=== PATIENT | male | born 1960 | race Caucasian/White ===

== ENCOUNTER 2020-12-22 01:45 | Inpatient (IN) | payer OTHER, SELFPAY ==
--- OUTSIDE RECORDS SUMMARY | 2020-12-22 01:48 | XMS REPORT | Continuity of Care Document ---
:1960 Author Organization [facility] t Address [address] [place] [address] Care Team Providers Name Role Phone Nisha Singh Attending Clinician KAI Attending Clinician Unavailable KAI Admitting Clinician Unavailable Payers Payer Name Policy Type Policy Number Effective Date Expiration Date S ource Problems This patient has no known problems. Allergies, Adverse Reactions, Alerts Allergy Allergy Status Severity Reaction(s) Onset Inactive Treating Comm ents Source Name Type Date Date Clinician peanut FA Active U 2020-0 [facility] [place] 00:00: [address] iodine DA Active U 2020-0 [facility] [place] 00:00: [address] Medications This patient has no known medications. Procedures This patient has no known procedures. Encounters Start End Encounter Admission Attending Care Care Encounter Source Date/Time Date/Time Type Type Clinicians Facility Department ID 2020-01-13 2020-01-13 [facility] Connie Singh [id number] 09:36:00 23:59:00 Encounter Tk Cameron [facility] [id number] Results Test Description Test Time Test Comments Results Result Comments Source GLUCOSE BEDSIDE TESTING 2020-01-27 20:48:00 Test Item Value Reference Range Interpretation Comme nts GLUCOSE BEDSIDE TESTING (test code = GLUBED) 178 MG/DL 70-119 H GLUCOSE BEDSIDE [id number] 17:18:00 Test Item Value Reference Range Interpretation Comments GLUCOSE BEDSIDE TESTING (test code 147 MG/DL 70-119 H = GLUBED) GLUCOSE BEDSIDE [id number] 12:13:00 Test Item Value Reference Range Interpretation Comments GLUCOSE BEDSIDE TESTING (test code 179 MG/DL 70-119 H = GLUBED) BASIC METABOLIC [id number] 11:50:00 Test Item Value Reference Range Interpretation Comments SODIUM (test code = 133.0 mmol/L 133-144 N NA) POTASSIUM (test code 3.1 mmol/L 3.5-5.1 L = K) CHLORIDE (test code 97 mmol/L 95-105 N = CL) CARBON DIOXIDE (test 31 mmol/L 21-32 N code = CO2) ANION GAP (test code 5.0 GAP calc 4.0-15.0 N = GAP) GLUCOSE (test code = 164 MG/DL 70-110 H GLU) BLOOD UREA NITROGEN 18 MG/DL 7-18 N (test code = BUN) CREATININE (test 2.11 MG/DL 0.55-1.30 H Results may be code = CREAT) depressed if patient is takingN-Acetylc yste ine (NAC) and Metamizole (Dipyrone). CALCIUM (test code = 8.5 MG/DL 8.5-10.1 N CA) INDEX HEMOLYSIS 1 NORMAL <10 MG 1 NORMAL (test code = Index/DL HEMINDEX) INDEX ICTERIC (test 1 NORMAL <2 MG 1 NORMAL code = ICTINDEX) Index/DL INDEX LIPEMIA (test 1 NORMAL <50 MG 1 NORMAL code = LIPINDEX) Index/DL AB HEPATITIS B [id number] 10:31:00 Test Item Value Reference Range Interpretation Comments AB HEPATITIS B > 1000.00 0.00-8.00 H INTERPRET WIT H SURFACE (test code mIU/ML CAUTION, THIS VALUE = HBSAB) EXCEEDS THE UPP ER LIMITOF LINEARI TY VERIFICATION ESTABLISHED BY THE LABORATORY.HBSA B IMMUNITY INTERPRETATION <8.00 mIU/ML NON-Reactive 8.00-12.00 mIU/ ML [place] Immunity Interpretation Range>12.00 mIU/ML Reactive /Immune Values of 10 mIU/ML or greater are considered reac tive (protective) in accordance with the (CDC) Centers f or Disease Control guidelines. The accepted criter ion for immunity to HB V is anti-HBS activi ty >=10 mIU/ML as defi oli by (WHO) World Hea lth Organization. AG HEPATITIS B [id number] 10:31:00 Test Item Value Reference Range Interpretation Comments AG HEPATITIS B SURFACE NEG-NONREAC SCREEN Nonreactive (test code = HBSAG) GLUCOSE BEDSIDE [id number] 05:58:00 Test Item Value Reference Range Interpretation Comments GLUCOSE BEDSIDE TESTING (test code 145 MG/DL 70-119 H = GLUBED) GLUCOSE BEDSIDE [id number] 21:07:00 Test Item Value Reference Range Interpretation Comments GLUCOSE BEDSIDE TESTING (test code 166 MG/DL 70-119 H = GLUBED) GLUCOSE BEDSIDE [id number] 16:08:00 Test Item Value Reference Range Interpretation Comments GLUCOSE BEDSIDE TESTING (test code 152 MG/DL 70-119 H = GLUBED) GLUCOSE BEDSIDE [id number] 11:47:00 Test Item Value Reference Range Interpretation Comments GLUCOSE BEDSIDE TESTING (test code 148 MG/DL 70-119 H = GLUBED) PROTHROMBIN [id number] 06:58:00 Test Item Value Reference Range Interpretation Comments PT PATIENT (test code 16.9 SECONDS 9.4-12.5 H = PTP) INTERNATIONAL NORMAL 1.46 INR Unit 0.88-1.13 H ------ RATIO (test code = --------- INR) ---- --Therapeutic r cholo for INR is dependent upon the situation.2.0-3 .0 Prophylaxis / venous thromboembolism , Treatment of DVT, Acute myocardial infarction stro ke prevention, Systemic emboli sm prevention in fibrillation3.0 -4.5 AMI recurrence prevention, Systemic emboli sm prevention in prosthetic hear t 3.0-5.4 AMI mortality reduc tion ANTICOAGULANT THERAPY [Y,N]: YESANTICOAGULANT [H,C]: COUMADINGLUCOSE BEDSIDE [id number] 06:40:00 Test Item Value Reference Range Interpretation Comments GLUCOSE BEDSIDE TESTING (test code 158 MG/DL 70-119 H = GLUBED) GLUCOSE BEDSIDE [id number] 20:45:00 Test Item Value Reference Range Interpretation Comments GLUCOSE BEDSIDE TESTING (test code 137 MG/DL 70-119 H = GLUBED) GLUCOSE BEDSIDE [id number] 16:44:00 Test Item Value Reference Range Interpretation Comments GLUCOSE BEDSIDE TESTING (test code 131 MG/DL 70-119 H = GLUBED) PROTHROMBIN [id number] 15:12:00 Test Item Value Reference Range Interpretation Comments PT PATIENT (test code 15.7 SECONDS 9.4-12.5 H = PTP) INTERNATIONAL NORMAL 1.36 INR Unit 0.88-1.13 H ------ RATIO (test code = --------- INR) ---- --Therapeutic r cholo for INR is dependent upon the situation.2.0-3 .0 Prophylaxis / venous thromboembolism , Treatment of DVT, Acute myocardial infarction stro ke prevention, Systemic emboli sm prevention in fibrillation3.0 -4.5 AMI recurrence prevention, Systemic emboli sm prevention in prosthetic hear t 3.0-5.4 AMI mortality reduc tion BASIC METABOLIC [id number] 15:09:00 Test Item Value Reference Range Interpretation Comments SODIUM (test code = NA) 132.0 mmol/L 133-144 L POTASSIUM (test code = K) 3.5 mmol/L 3.5-5.1 N CHLORIDE (test code = CL) 96 mmol/L 95-105 N CARBON DIOXIDE (test code 32 mmol/L 21-32 N = CO2) ANION GAP (test code = 4.0 GAP calc 4.0-15.0 N GAP) GLUCOSE (test code = GLU) 141 MG/DL 70-110 H BLOOD UREA NITROGEN (test 14 MG/DL 7-18 N code = BUN) CREATININE (test code = MG/DL 0.55-1.30 CREAT) CALCIUM (test code = CA) 8.8 MG/DL 8.5-10.1 N INDEX HEMOLYSIS (test 1 NORMAL <10 MG 1 NORMAL code = HEMINDEX) Index/DL INDEX ICTERIC (test code 1 NORMAL <2 MG 1 NORMAL = ICTINDEX) Index/DL INDEX LIPEMIA (test code 1 NORMAL <50 MG 1 NORMAL = LIPINDEX) Index/DL BASIC METABOLIC [id number] 15:09:00 Test Item Value Reference Range Interpretation Comments SODIUM (test code = 132.0 mmol/L 133-144 L NA) POTASSIUM (test code 3.5 mmol/L 3.5-5.1 N = K) CHLORIDE (test code 96 mmol/L 95-105 N = CL) CARBON DIOXIDE (test 32 mmol/L 21-32 N code = CO2) ANION GAP (test code 4.0 GAP calc 4.0-15.0 N = GAP) GLUCOSE (test code = 141 MG/DL 70-110 H GLU) BLOOD UREA NITROGEN 14 MG/DL 7-18 N (test code = BUN) CREATININE (test 2.63 MG/DL 0.55-1.30 H Results may be code = CREAT) depressed if patient is takingN-Acetylc yste ine (NAC) and Metamizole (Dipyrone). CALCIUM (test code = 8.8 MG/DL 8.5-10.1 N CA) INDEX HEMOLYSIS 1 NORMAL <10 MG 1 NORMAL (test code = Index/DL HEMINDEX) INDEX ICTERIC (test 1 NORMAL <2 MG 1 NORMAL code = ICTINDEX) Index/DL INDEX LIPEMIA (test 1 NORMAL <50 MG 1 NORMAL code = LIPINDEX) Index/DL GLUCOSE BEDSIDE [id number] 12:15:00 Test Item Value Reference Range Interpretation Comments GLUCOSE BEDSIDE TESTING (test code 138 MG/DL 70-119 H = GLUBED) PT AND [id number] 10:30:00 Test Item Value Reference Interpretation Comments Range PT PATIENT (test 15.8 SECONDS 9.4-12.5 H code = PTP) INTERNATIONAL 1.37 INR 0.88-1.13 H NORMAL RATIO (test Unit --------- code = INR) ---------Therap eutic range for INR i s dependent upon the situation.2.0-3 .0 Prophylaxis / v enous thromboembolism , Treatment of DVT, Acute myocardia l infarction stro ke prevention, Systemic emboli sm prevention in fibrillation3.0 -4.5 AMI recurrence prev ention, Systemic emboli sm prevention in p rosthetic heart 3.0-5.4 A [place] mortality reduc tion THROMBOPLASTIN TIME 102.2 24-37.7 HH Critica l values after PARTIAL (test code SECONDS the first occurrence are = PTT) excluded fromca ll documentation requirements fo r this analyte due to thepatient diagnosis or th erapy protocols.THERA PEUTIC RANGE FOR UNFRA CTIONATED HEPARIN = 50.5- 83.6 SEC This test is no t recommended to monitor low molecularwe ight heparin or sienna paroid. Order LMWH test COLLECTION THRO UGH LINES THAT HAVE BEEN PREVIOUSLY FLUSHEDWITH HEP GIL SHOULD BE AVOID ED DUE TO POSSIBLE HEPARINCONTAMIN ATION PENDING RECEIPT OF SPECIMEN PER B.LAB.KTP AT 01/25/20 0942Is this a LINE draw? NANTICOAGULANT THERAPY [Y,N]: YESANTICOAGULANT [H,C]: HEPARINLIPID PROFILE (CORONARY RISK)2020-01-25 07:20:00 Test Item Value Reference Range Interpretation Comments TRIGLYCERIDES (test 444 MG/DL 0-150 H HIGH RIS K TRIGLYCERIDE code = TRIG) 200-499 MG/DLRe ference intervals provi ded by The National CholesterolEduc ation Program Adult T reatment Panel III (NCEP -ATP III).Results ma y be depressed if yimi castle is takingN-Acetylc ysteine (NAC) and Metam izole (Dipyrone). CHOLESTEROL (test 159 MG/DL 133-200 N code = CHOL) CHOLESTEROL/HDL 4.96 RATIO >0 REFERENCE R CHOLO: RATIO (test code = MALE FEMALE CHOLHDL) 1/2 AVG RISK 3.43 3.27 AVG RISK 4.9 7 4.44 2X AV G RISK 9.55 7.05 3X AVG RISK 23.39 11.04 HDL CHOLESTEROL 32 MG/DL 40-59 L Results mayb e depressed (test code = HDL) if patient is taking Metamizole(Dipy echo). NON-HDL CHOLESTEROL 127 mg/dL <130 Patients with CHD or CHD (test code = NHDL) risk LD L: <70 mg/dL nonHDL: <100 mg/dLPatients w ith 2+ risk factors LDL: <130 mg/dL no nHDL: <160 mg/dLPatie nts with 0-1 risk factor s LDL: <160 mg/dL nonHDL: <190 mg/dL LIPOPROTEIN LDL 38 MG/DL 0-129 N (test code = LDL) LDL/HDL (test code 1.18 Ratio 1.48-3.22 Avg L LDL/HDL RISK = LDL/HDL) ASSESSMENT1.47 One-half averag e3.22 Average5.03 Two times average6. [address] rage COMPREHENSIVE METABOLIC [id number] 07:09:00 Test Item Value Reference Range Interpretation Comments SODIUM (test code = 134.0 mmol/L 133-144 N NA) POTASSIUM (test code 3.7 mmol/L 3.5-5.1 N = K) CHLORIDE (test code 98 mmol/L 95-105 N = CL) CARBON DIOXIDE (test 32 mmol/L 21-32 N code = CO2) ANION GAP (test code 4.0 GAP calc 4.0-15.0 N = GAP) GLUCOSE (test code = 119 MG/DL 70-110 H GLU) BLOOD UREA NITROGEN 11 MG/DL 7-18 N (test code = BUN) GLOMERULAR 26 estGFR >60 L The estimated FILTRATION RATE glomerular (test code = GFR) filtration rate is computed usingpatient ra ce, age, sex, and s tomasz creatinine. If any of theneeded da ta elements are mi ssing the Laboratory can notcompute an estimation of t he glomerular filtration rate .The GFR value units = ml/min/1.73 met er squared. EstimatedGFR va lues above 60 should be interpreted as >60, not anexact number.--- DRUG DOSAGE ALERT -- - Drug dosage adjustments uti lize different calculationpara meter s. CREATININE (test 2.51 MG/DL 0.55-1.30 H Results may be code = CREAT) depressed if p atient is takingN-Acetylc ystei ne (NAC) and Metamizole (Dipyrone). TOTAL PROTEIN (test 8.6 G/DL 6.4-8.2 H code = PROT) ALBUMIN (test code = 4.0 G/DL 3.4-5.0 N ALB) ALBUMIN/GLOBULIN 0.9 RATIO 1.2-2.2 L RATIO (test code = A/G) CALCIUM (test code = 8.7 MG/DL 8.5-10.1 N CA) BILIRUBIN TOTAL 0.97 MG/DL 0.00-1.00 N (test code = BILT) BILIRUBIN DIRECT 0.34 MG/DL 0.00-0.30 H (test code = BILD) BILIRUBIN INDIRECT 0.63 MG/DL 0.2-1.3 N (test code = BILIND) SGOT/AST (test code 35 Unit/L 15-37 N = AST) SGPT/ALT (test code 23 Unit/L 12-78 N = ALT) ALKALINE PHOSPHATASE 173 Unit/L 45-117 H TOTAL (test code = ALKP) INDEX HEMOLYSIS 1 NORMAL <10 1 NORMAL (test code = MG Index/DL HEMINDEX) INDEX ICTERIC (test 1 NORMAL <2 MG 1 NORMAL code = ICTINDEX) Index/DL INDEX LIPEMIA (test 1 NORMAL <50 1 NORMAL code = LIPINDEX) MG Index/DL [id number] 07:09:00 Test Item Value Reference Range Interpretation Comments TROPONIN-I 0.175 NG/ML 0.000-0.045 HH Critical values after the (test code = first occurrenc e are excluded TROPI) fromcall docume ntation requirements fo r this analyte due to thepatie nt diagnosis or therapy prot ocols.An elevated tropon in value alone is not sufficie nt todiagnose a myocardial in farction. Rather, the pat ient'sclinical presentation (h istory, physical exam) and ECGshould be used in conj unction with troponin in the diagnostic evaluation of s uspected myocardial infa rction. Aserial samplin g protocol is recommended to facilitate theidentificati on of temporal changes in trop onin levelscharacter istic of [place]. COMPREHENSIVE METABOLIC [id number] 06:51:00 Test Item Value Reference Range Interpretation Comments SODIUM (test code = NA) 134.0 mmol/L 133-144 N POTASSIUM (test code = K) 3.7 mmol/L 3.5-5.1 N CHLORIDE (test code = CL) 98 mmol/L 95-105 N CARBON DIOXIDE (test code mmol/L 21-32 = CO2) ANION GAP (test code = GAP calc 4.0-15.0 GAP) GLUCOSE (test code = GLU) MG/DL 70-110 BLOOD UREA NITROGEN (test MG/DL 7-18 code = BUN) CREATININE (test code = MG/DL 0.55-1.30 CREAT) TOTAL PROTEIN (test code G/DL 6.4-8.2 = PROT) ALBUMIN (test code = ALB) G/DL 3.4-5.0 ALBUMIN/GLOBULIN RATIO RATIO 1.2-2.2 (test code = A/G) CALCIUM (test code = CA) MG/DL 8.5-10.1 BILIRUBIN TOTAL (test MG/DL 0.00-1.00 code = BILT) BILIRUBIN DIRECT (test MG/DL 0.00-0.30 code = BILD) BILIRUBIN INDIRECT (test MG/DL 0.2-1.3 code = BILIND) SGOT/AST (test code = Unit/L 15-37 AST) SGPT/ALT (test code = Unit/L 12-78 ALT) ALKALINE PHOSPHATASE Unit/L 45-117 TOTAL (test code = ALKP) INDEX HEMOLYSIS (test 1 NORMAL <10 MG 1 NORMAL code = HEMINDEX) Index/DL INDEX ICTERIC (test code 1 NORMAL <2 MG 1 NORMAL = ICTINDEX) Index/DL INDEX LIPEMIA (test code 1 NORMAL <50 MG 1 NORMAL = LIPINDEX) Index/DL [id number] 06:51:00 Test Item Value Reference Range Interpretation Comments TROPONIN-I (test code = TROPI) NG/ML 0.000-0.045 GLYCOSYLATED HEMOGLOBIN (HA1C)2020-01-25 06:50:00 Test Item Value Reference Range Interpretation Comments GLYCOSYLATED HEMOGLOBIN (HA1C) 5.5 % A1C 4.2-6.3 N (test code = GLYHGB) CBC W/AUTO [id number] 05:54:00 Test Item Value Reference Range Interpretation Comments WHITE BLOOD CELL (test code = 5.4 K/mm3 4.1-12.1 N WBC) RED BLOOD CELL (test code = RBC) 4.03 M/mm3 3.8-5.5 N HEMOGLOBIN (test code = HGB) 12.1 G/DL 10.6-15.8 N HEMATOCRIT (test code = HCT) 37.1 % 31.8-47.4 N MEAN CELL VOLUME (test code = 92.1 fL 80.1-101.1 N MCV) MEAN CELL HGB (test code = MCH) 30.0 pg 25.3-35.3 N MEAN CELL HGB CONCETRATION (test 32.6 G/DL 32.7-35.1 L code = MCHC) RED CELL DISTRIBUTION WIDTH 16.4 % 12.2-16.4 N (test code = RDW) RED CELL DISTRIBUTION WIDTH 54.7 fL 35.1-43.9 H (test code = RDW-SD) PLATELET COUNT (test code = PLT) 139 K/mm3 155-337 L MEAN PLATELET VOLUME (test code 10.4 fL 7.6-10.4 N = MPV) GRANULOCYTE % (test code = GR%) 69.1 % 37.8-82.6 N IMMATURE GRANULOCYTE % (test 0.4 % 0.0-2.0 N code = IG%) LYMPHOCYTE % (test code = LY%) 18.5 % 14.1-45.4 N MONOCYTE % (test code = MO%) 9.3 % 2.5-11.7 N EOSINOPHIL % (test code = EO%) 2.1 % 0.0-6.2 N BASOPHIL % (test code = BA%) 0.6 % 0.0-2.6 N NUCLEATED RBC % (test code = 0.0 /100WBC% 0.0-1.0 N NRBC%) GRANULOCYTE # (test code = GR#) 3.71 k/mm3 2.0-13.7 N IMMATURE GRANULOCYTE # (test 0.02 K/mm3 0.00-0.03 N code = IG#) LYMPHOCYTE # (test code = LY#) 0.99 K/mm3 0.6-3.8 N MONOCYTE # (test code = MO#) 0.50 K/mm3 0.11-0.59 N EOSINOPHIL # (test code = EO#) 0.11 K/mm3 0.0-0.4 N BASOPHIL # (test code = BA#) 0.03 K/mm3 0.0-0.1 N NUCLEATED RBC # (test code = 0.00 K/mm3 0.00-0.05 N NRBC#) GLUCOSE BEDSIDE [id number] 05:24:00 Test Item Value Reference Range Interpretation Comments GLUCOSE BEDSIDE TESTING (test code 120 MG/DL 70-119 H = GLUBED) PT AND [id number] 23:09:00 Test Item Value Reference Interpretation Comments Range PT PATIENT (test 15.9 SECONDS 9.4-12.5 H code = PTP) INTERNATIONAL 1.38 INR 0.88-1.13 H NORMAL RATIO (test Unit --------- code = INR) ---------Therap eutic range for INR i s dependent upon the situation.2.0-3 .0 Prophylaxis / v enous thromboembolism , Treatment of DVT, Acute myocardia l infarction stro ke prevention, Systemic emboli sm prevention in fibrillation3.0 -4.5 AMI recurrence prev ention, Systemic emboli sm prevention in p rosthetic heart 3.0-5.4 A [place] mortality reduc tion THROMBOPLASTIN TIME 72.8 SECONDS 24-37.7 H THERAPEU TIC RANGE FOR PARTIAL (test code UNFRACTIO NATED HEPARIN = = PTT) 50.5-83.6 SEC T his test is not recommen ded to monitor low molecularweight heparin or danaparoid. Order LMWH test COLLECTION THROUGH LINES THAT HAVE BEEN PREVIOUSLY FLUS HEDWITH HEPARIN SHOULD BE AVOIDED DUE TO POSSIBLE HEPARINCONTAMIN ATION Coronavirus 2018 [facility]Co [id number] 22:41:00 Test Item Value Reference Range Interpretation Comments Coronavirus 2019 [facility] Bedside (test Negative Neg code = COVNONPUIBED) - XR CHEST 1 [id number] 21:00:00 FAX: Federico Phillip MD [phone] [place]: E St: REG Patient Name: MARIANA ANTONY Unit No: [id number] EXAMS: CPT CODE: [id number] XR CHEST 1 V [id number] EXAM: - XR CHEST 1 V LOCATION: C3 HISTORY: Chest pain COMPARISON: None available time of inte rpretation. FINDINGS: Single view of the chest. The left IJ CVC tip overlies the right atrial shadow. No pneumothorax. Lung volumesare low. Mild bibasilar infiltrates. The mediastinal contours are unremarkable/unchanged.No acute osseous findings are present. IMPRESSION: Mild bibasilar edema versus pneumonitis. at 2100 Reported and signed by: Isael Mcclendon MD CC: Federico Phillip MD Dictated Date/Time: 01/24/2020 (2099)Technologist: Diana Tijerina Transcribed Date/Time: 01/24/2020 (2099) By: [email or web address] Orig Print D/T: S: 01/24/2020 (2102) HAILEY Baumann NAME: MARIANA ANTONY [address] PHYS: HOWIE. Federico Phillip [place], [place] [address] : 1960 AGE: 59 SEX: M LOC: [facility] PHONE #: [phone] EXAM DATE: 01/24/2020 STATUS: REG ER FAX #: [phone] RAD NO: DC Dt: PAGE 1 Signed ReportBASIC METABOLIC [id number] 20:54:00 Test Item Value Reference Range Interpretation Comments SODIUM (test code = 133.0 mmol/L 133-144 N NA) POTASSIUM (test code 3.4 mmol/L 3.5-5.1 L = K) CHLORIDE (test code 97 mmol/L 95-105 N = CL) CARBON DIOXIDE (test 30 mmol/L 21-32 N code = CO2) ANION GAP (test code 6.0 GAP calc 4.0-15.0 N = GAP) GLUCOSE (test code = 125 MG/DL 70-110 H GLU) BLOOD UREA NITROGEN 9 MG/DL 7-18 N (test code = BUN) CREATININE (test 2.03 MG/DL 0.55-1.30 H Results may be code = CREAT) depressed if patient is takingN-Acetylc yste ine (NAC) and Metamizole (Dipyrone). CALCIUM (test code = 8.9 MG/DL 8.5-10.1 N CA) INDEX HEMOLYSIS 1 NORMAL <10 MG 1 NORMAL (test code = Index/DL HEMINDEX) INDEX ICTERIC (test 1 NORMAL <2 MG 1 NORMAL code = ICTINDEX) Index/DL INDEX LIPEMIA (test 1 NORMAL <50 MG 1 NORMAL code = LIPINDEX) Index/DL TROPONIN I [id number] 20:47:00 Test Item Value Reference Range Interpretation Comments TROPONIN I RAPID 0.13 NG/ML 0.00-0.07 HH LOW/HIGH AL ERT VALUE - (test code = ACTION REQUIRED An elevated TROPIRAP) troponin value alone is not sufficient todi agnose a myocardial infa rction. Rather, the patient'sclinic al presentation (h istory, physical exam) and ECGshould be us ed in conjunction wit h troponin in thediagnosti c evaluation of suspected my ocardial infarction. Ase rial sampling protoc ol is recommended to facilitate theidentificati on of temporal change s in troponin levelscharacter istic of [place]. CBC W/O [id number] 20:44:00 Test Item Value Reference Range Interpretation Comments WHITE BLOOD CELL (test code = WBC) 7.8 K/mm3 4.1-12.1 N RED BLOOD CELL (test code = RBC) 3.93 M/mm3 3.8-5.5 N HEMOGLOBIN (test code = HGB) 12.1 G/DL 10.6-15.8 N HEMATOCRIT (test code = HCT) 35.7 % 31.8-47.4 N MEAN CELL VOLUME (test code = MCV) 90.8 fL 80.1-101.1 N MEAN CELL HGB (test code = MCH) 30.8 pg 25.3-35.3 N MEAN CELL HGB CONCETRATION (test 33.9 G/DL 32.7-35.1 N code = MCHC) RED CELL DISTRIBUTION WIDTH (test 15.8 % 12.2-16.4 N code = RDW) PLATELET COUNT (test code = PLT) 145 K/mm3 155-337 L MEAN PLATELET VOLUME (test code = 10.6 fL 7.6-10.4 H MPV) Comprehensive Metabolic [id number] 00:41:00 Test Item Value Reference Range Interpretation Comments Sodium (test code 132 mmol/L 135-145 L = NA) Potassium (test see comment 3.5-5.1 Hemolyzed K+ 8.08 code = K) mmol/L Chloride (test 98 mmol/L 98-105 N code = CL) Carbon Dioxide 21 mmol/L 22-29 L (test code = CO2) Glucose (test code 174 mg/dL 70-115 H = GLU) Blood Urea 16 mg/dL 6-20 N Nitrogen (test code = BUN) Creatinine (test 1.1 mg/dL 0.7-1.2 N code = CREAT) Calcium (test code 8.8 mg/dL 8.3-10.5 N = CA) Prot Total (test 8.0 g/dL 6.4-8.3 N code = TP) Albumin (test code 4.1 g/dL 3.5-5.2 N = ALB) A/G Ratio (test 1.1 Ratio code = AGRATIO) Globulin (test 3.9 2.9-3.1 H code = GLOB) Bili Total (test 0.5 mg/dL 0.1-0.9 N code = TBIL) Alk Phos (test 112 U/L 40-129 N code = APHOS) AST (test code = 74 U/L 1-40 H AST) ALT (test code = 9 U/L 1-41 N Hemolyzed ALT) BUN/Creatinine 14.5 Ratio (test code = BCRATIO) Anion Gap (test 13 mmol/L 7-16 N code = AGAP) Estimated GFR >60 eGFR (estimate d (test code = GFR) mL/min/1.73m2 Glomerula r Filtration Rate) is an est imated value,calculate d from the patient's s tomasz creatinine usin g the MDRD equation.I t is NOT the patient 's actual GFR. The eGFR provides a more clinicallyusefu l measure of kidn ey disease than se rum creatinine alone.This calculation nilesh es sex and race into account, if the informationis provided. If th e race is not provided , and the patient isAfrican-Ameri can, multiply by 1.2 12. If sex is not prov ided, and thepatient is female, multipl y by 0.742. Results for patients <18 ye ars ofage have not been validated by th e MDRD study and jayden colbert be interpretedwith caution.eGFR Re sult Interpretation: eGFR > or = 60 is in t he Normal RangeeGF R < 60 may mean kidney diseaseeGFR < 1 5 may mean kidney failureRange s recommended by the National Kidney Foundation,http ://nkd ep.nih.gov Troponin [id number] 00:41:00 Test Item Value Reference Range Interpretation Comments Troponin T (test code = CAMILLE) <0.010 ng/mL 0.000-0.090 N CK [id number] 00:41:00 Test Item Value Reference Range Interpretation Comments CK (test code = CK) 146 U/L 39-308 N CK [id number] 00:41:00 Test Item Value Reference Range Interpretation Comments CK (test code = CK) 146 U/L 39-308 N CKMB (test code = CKMB) 1.8 ng/mL 0.0-4.9 N CKMB% (test code = CKMBP) 1.2 % 0.0-3.4 N Prothrombin [id number] 00:15:00 Test Item Value Reference Range Interpretation Comments PT (test code = PT) 11.60 seconds 9.78-13.35 N INR (test code = INR) 1.02 Ratio 0.6-1.2 N Partial Thromboplastin [id number] 00:15:00 Test Item Value Reference Range Interpretation Comments aPTT (test code = PTT) 38.00 seconds 24.39-37.25 H CBC with [id number] 00:01:00 Test Item Value Reference Range Interpretation Comments WBC (test code = WBC) 6.4 K/cumm 4.4-10.5 N RBC (test code = RBC) 6.04 M/cumm 4.10-5.70 H Hemoglobin (test code = HGB) 16.3 gm/dL 13.4-17.4 N Hematocrit (test code = HCT) 49.4 % 38.7-52.0 N MCV (test code = MCV) 81.7 fL 80-100 N MCH (test code = MCH) 26.9 pg 27.0-32.5 L MCHC (test code = MCHC) 32.9 g/dL 32.0-37.5 N RDW (test code = RDW) 16.5 % 11.5-14.5 H Platelet Count (test code = 138 K/cumm 140-440 L PLTCT) MPV (test code = MPV) 9.5 fL Diff Method (test code = DIFFM) Auto Neutrophil (test code = NEUT) 75.0 % 36-70 H Lymphocyte (test code = LYMPH) 16.5 % 12-44 N Monocyte (test code = MONO) 7.2 % 0-11 N Eosinophil (test code = EOS) 1.0 % 0-7 N Basophil (test code = BASO) 0.4 % 0-2 N Neutro Abs (test code = ANEUT) 4.8 K/cumm 1.6-7.4 N Lymph Abs (test code = ALYMPH) 1.0 K/cumm 0.5-4.6 N [place] Abs (test code = AMONO) 0.5 K/cumm 0.0-1.2 N Eos Abs (test code = AEOS) 0.06 K/cumm 0.00-0.74 N Baso Abs (test code = ABASO) 0.0 K/cumm 0.00-0.21 N
[2020-12-22 02:15] LABS: Urine Blood 3+ (Negative); Urine Glucose 3+ (Negative); Urine Protein 3+ (Negative); Urine Specific Gravity 1.025 (1.005-1.030)
[2020-12-22] MEDS ORDERED: NA CHLORIDE 0.9% 1,000 ML ONE (02:26)
[2020-12-22 02:43] LABS: Absolute Lymphocytes (CBC) 0.6 K/uL (0.7-4.9); Basophils % 0.1 % (0-1.3); Hematocrit 41.1 % (39.6-49.0); Lymphocytes % 6.5 % (15.3-44.8); MPV 9.7 fL (7.6-11.3); RBC Red Blood Cell Count 4.84 M/uL (4.33-5.43)
[2020-12-22 02:49] LABS: BUN Blood Urea Nitrogen 23 mg/dL (7-18); Bicarbonate 22 mmol/L (21-32); Creatine Phosphokinase 821 U/L (39-308); Glucose Level 273 mg/dL (74-106); Potassium 3.9 mmol/L (3.5-5.1); Sodium Level 143 mmol/L (136-145)
[2020-12-22 03:23] LABS: SARS-COV-2 RT PCR NEGATIVE (NEGATIVE)
[2020-12-22 04:15] LABS: Urine Bacteria <20 /HPF (NONE SEEN); Urine RBC <5 /HPF (NONE SEEN)
--- NOTE | 2020-12-22 04:26 | ER ---
Nurse's Notes [facility] Name: Reji Swift Age: 60 yrs Sex: Male : 1960 Arrival Date: 12/22/2020 Time: 01:46 Bed 18 Private MD: Diagnosis: Acute kidney failure, unspecified;Hyperglycemia, unspecified;Weakness;Chronic obstructive pulmonary disease with (acute) exacerbation;Conjunctivitis Presentation: 12/22 01:47 Chief complaint: EMS states: he complaints of extreme general weakness, excessive rr5 thirst and shortness of breath SPO2 94% hooked to O2 at 2L went up to 97%. Coronavirus screen: Client denies travel out of the [place] in the last 14 days. shortness of breath, Client presents with at least one sign or symptom that may indicate coronavirus-19. Standard/surgical mask placed on the client. Provider contacted for isolation considerations. Ebola Screen: Patient negative for fever greater than or equal to 101.5 degrees Fahrenheit, and additional compatible Ebola Virus Disease symptoms Patient denies exposure to infectious person. Patient denies travel to an Ebola-affected area in the 21 days before illness onset. Initial Sepsis Screen: Does the patient meet any 2 criteria? No. Patient's initial sepsis screen is negative. Does the patient have a suspected source of infection? No. Patient's initial sepsis screen is negative. Risk Assessment: Do you want to hurt yourself or someone else? Patient reports no desire to harm self or others. Onset of symptoms was December 22, 2020. 01:47 Method Of Arrival: EMS: [facility] rr5 01:47 Acuity: LUIS DANIEL 3 rr5 Historical: - Allergies: 01:54 Iodine; rr5 - Home Meds: 01:54 amlodipine oral [Active]; atorvastatin 20 mg Oral tab 1 tab once daily [Active]; rr5 Docusate Sodium Oral [Active]; Levemir subcutaneous [Active]; lisinopril 40 mg Oral tab 1 tab once daily [Active]; novolin [Active]; Warfarin Oral [Active]; - PMHx: 01:54 Angina; Atrial Fib; Diabetes - IDDM; Hypertension; renal failure; neuropathy; COPD; rr5 chronic back pain; Asthma; ENDOCARDITIS; PAD; Sleep Apnea; - PSHx: 01:54 heart bypass; rr5 01:54 heart valve replacement; rr5 - Immunization history:: Adult Immunizations up to date. - Social history:: Smoking status: Patient/guardian denies using tobacco, the patient reports quitting approximately 4 years ago, Patient/guardian denies using alcohol, street drugs. - Family history:: not pertinent. - Hospitalizations: : No recent hospitalization is reported. Screenin:54 Abuse screen: Denies threats or abuse. Denies injuries from another. Nutritional rr5 screening: No deficits noted. Tuberculosis screening: No symptoms or risk factors identified. Fall Risk IV access (20 points). Ambulatory Aid- Crutches/Cane/Walker (15 pts). Gait- Weak (10 pts.). Total Cardenas Fall Scale indicates High Risk Score (45 or more points). Fall prevention measures have been instituted. Side Rails Up X 2 Placed Close to Nursing Station Frequent Obs/Assessments Occuring As available patient and family educated on Fall Prevention Program and Strategies. Assessment: 01:55 General: Appears in no apparent distress. uncomfortable, Behavior is calm, cooperative, rr5 anxious. Pain: Complains of pain in right eye and left eye. Neuro: Level of Consciousness is awake, alert, obeys commands, Oriented to person, place, time, situation, Reports weakness. Cardiovascular: Capillary refill < 3 seconds Patient's skin is warm and dry. Respiratory: Reports shortness of breath Airway is patent Respiratory effort is even, unlabored, Respiratory pattern is regular, symmetrical. GI: Abdomen is round non-distended, obese. : No signs and/or symptoms were reported regarding the genitourinary system. EENT: Reports pain in right eye and left eye. Derm: Skin is intact, is healthy with good turgor, Skin temperature is warm. Musculoskeletal: Capillary refill < 3 seconds, Reports weakness in right arm, left arm, right leg and left leg. 03:00 Reassessment: Patient appears in no apparent distress at this time. Patient is alert, rr5 oriented x 3, equal unlabored respirations, skin warm/dry/pink. 03:08 Reassessment: [id number] mother. rr5 04:00 Reassessment: Patient appears in no apparent distress at this time. Patient is alert, rr5 oriented x 3, equal unlabored respirations, skin warm/dry/pink. awaiting for results. 05:00 Reassessment: Patient appears in no apparent distress at this time. Patient is alert, rr5 oriented x 3, equal unlabored respirations, skin warm/dry/pink. hospitalist at bedside. 05:45 Reassessment: Patient appears in no apparent distress at this time. Patient is alert, rr5 oriented x 3, equal unlabored respirations, skin warm/dry/pink. vital signs taken and recorded. Vital Signs: 01:47 BP 123 / 78; Pulse 92; Resp 19; Temp 98.3; Pulse Ox 96% on 2 lpm NC; Weight 132.45 kg; rr5 Height 6 ft. 2 in. (187.96 cm); Pain 0/10; 02:30 BP 131 / 79; Pulse 85; Resp 17; Pulse Ox 98% on 2 lpm NC; rr5 04:00 BP 132 / 79; Pulse 87; Resp 19; Pulse Ox 98% on 2 lpm NC; ea 05:00 BP 134 / 84; Pulse 90; Resp 20; Pulse Ox 98% on 2 lpm NC; ea 05:40 BP 136 / 77; Pulse 87; Resp 19; Pulse Ox 97% on 2 lpm NC; ea 01:47 Body Mass Index 37.49 (132.45 kg, 187.96 cm) rr5 ED Course: 01:46 Patient arrived in ED. rr5 01:47 Joe Sow MD is Attending Physician. rn 01:50 Triage completed. rr5 01:54 Arm band placed on right wrist. rr5 01:54 Patient has correct armband on for positive identification. Placed in gown. Bed in low rr5 position. Call light in reach. Side rails up X2. phototypesetting equipment monitor on. Pulse ox on. NIBP on. 02:02 Brett Acosta RN is Primary Nurse. rr5 02:15 EKG done, by ED staff, reviewed by Joe Sow MD. rr5 02:17 Chest Single View In Process Unspecified. EDMS 02:20 Urine collected: clean catch specimen, clear. rr5 02:22 Inserted saline lock: 20 gauge in right forearm, using aseptic technique. Blood rr5 collected. 02:30 No provider procedures requiring assistance completed. rr5 04:25 Brett Sow MD is Hospitalizing Provider. rn 04:40 Inserted saline lock: 20 gauge in right forearm, using aseptic technique. Blood rr5 collected. 05:22 Patient admitted, IV remains in place. intact, No redness/swelling at site. rr5 Administered Medications: 02:15 Drug: NS 0.9% 1000 ml Route: IV; Rate: 1000 ml; Site: right forearm; rr5 04:20 Drug: SOLU-Medrol (methylPrednisoLONE) 125 mg Route: IVP; Site: right forearm; rr5 05:50 Follow up: Response: No adverse reaction rr5 05:00 Drug: Xopenex (levalbuterol) 1.25 mg Route: Inhalation; rr5 05:50 Follow up: Response: No adverse reaction rr5 05:07 Not Given (Duplicate Order; not in pyxis): Vigamox (moxifloxacin) 0.5 % 1 drops rn Ophthalmic in both eyes once 05:12 Drug: LevaQUIN (levofloxacin) 500 mg Volume: 100 ml; Route: IVPB; Infused Over: 60 rr5 mins; Site: right forearm; 05:52 Follow up: Response: No adverse reaction; IV Status: Completed infusion; IV Intake: rr5 100ml 05:12 Drug: Whcaeuxu-Zxportdvp-Gopybgcsqn 2 drops Route: Ophthalmic; Site: both eyes; rr5 05:50 Follow up: Response: No adverse reaction rr5 Intake: 05:52 IV: 100ml; Total: 100ml. rr5 Output: 02:00 Urine: 800ml (Voided); Total: 800ml. rr5 Outcome: 04:26 Decision to Hospitalize by Provider. rn 05:21 Admitted to Tele accompanied by tech, via stretcher, room 428, with oxygen, with chart, rr5 Report called to dion 05:21 Condition: stable 05:21 Instructed on the need for admit. 05:51 Patient left the ED. rr5 Signatures: Dispatcher [employer] EDJoe Cope MD MD rn Antunez, Elena, RN RN ea Roque, Raymond, RN RN rr5
--- NOTE | 2020-12-22 04:26 | EDPHYS ---
Physician Documentation [facility] Name: Reji Swift Age: 60 yrs Sex: Male : 1960 Arrival Date: 12/22/2020 Time: 01:46 Bed 18 Private MD: ED Physician Joe Sow HPI: 12/22 02:01 This 60 yrs old Male presents to ER via EMS with complaints of General rn Weakness. 02:01 Reports generalized weakness, fatigue, falling when walking due to weakness. Reports rn difficulty controlling blood sugar recently, urinating a lot, and very thirsty. + chills. No fever. NO increased sob or cough. No abd pain/nausea/vomiting/diarrhea. . Onset: The symptoms/episode began/occurred 3 day(s) ago. Severity of symptoms: At their worst the symptoms were moderate in the emergency department the symptoms are unchanged. The patient has experienced similar episodes in the past. The patient has not recently seen a physician. Historical: - Allergies: 01:54 Iodine; rr5 - Home Meds: 01:54 amlodipine oral [Active]; atorvastatin 20 mg Oral tab 1 tab once daily [Active]; rr5 Docusate Sodium Oral [Active]; Levemir subcutaneous [Active]; lisinopril 40 mg Oral tab 1 tab once daily [Active]; novolin [Active]; Warfarin Oral [Active]; - PMHx: 01:54 Angina; Atrial Fib; Diabetes - IDDM; Hypertension; renal failure; neuropathy; COPD; rr5 chronic back pain; Asthma; ENDOCARDITIS; PAD; Sleep Apnea; - PSHx: 01:54 heart bypass; rr5 01:54 heart valve replacement; rr5 - Immunization history:: Adult Immunizations up to date. - Social history:: Smoking status: Patient/guardian denies using tobacco, the patient reports quitting approximately 4 years ago, Patient/guardian denies using alcohol, street drugs. - Family history:: not pertinent. - Hospitalizations: : No recent hospitalization is reported. ROS: 02:01 Constitutional: Negative for fever, and weight loss, Eyes: + redness and rn referral (states being treated with abx drops by eye doctor for 1 week) ENT: + nasal congestion Cardiovascular: Negative for chest pain, palpitations, and edema, Respiratory: Negative for shortness of breath, and pleuritic chest pain, Abdomen/GI: Negative for abdominal pain, nausea, vomiting, diarrhea, and constipation, Back: Negative for injury and pain, : Negative for injury, bleeding, discharge, and swelling, + increased urination MS/Extremity: Negative for injury and deformity, Skin: Negative for injury, rash, and discoloration, Neuro: Negative for headache, numbness, tingling, and seizure. Exam: 02:01 Constitutional: Overweight male, no acute distress Head/Face: Normocephalic, rn atraumatic. Eyes: + injected sclera with clear and green discharge and matteing of eyelids. No hyphema or hypopyon ENT: dry MM Cardiovascular: Regular rate and rhythm. No pulse deficits. Respiratory: No increased work of breathing, no retractions or nasal flaring. Abdomen/GI: soft, non-tender Skin: Warm, dry, no cyanosis MS/ Extremity: Pulses equal, no cyanosis. Neurovascular intact. Full, normal range of motion. Neuro: Awake and alert, GCS 15, oriented to person, place, time, and situation. Motor strength 4/5 in all extremities. Sensory grossly intact. Vital Signs: 01:47 BP 123 / 78; Pulse 92; Resp 19; Temp 98.3; Pulse Ox 96% on 2 lpm NC; Weight 132.45 kg; rr5 Height 6 ft. 2 in. (187.96 cm); Pain 0/10; 02:30 BP 131 / 79; Pulse 85; Resp 17; Pulse Ox 98% on 2 lpm NC; rr5 04:00 BP 132 / 79; Pulse 87; Resp 19; Pulse Ox 98% on 2 lpm NC; ea 05:00 BP 134 / 84; Pulse 90; Resp 20; Pulse Ox 98% on 2 lpm NC; ea 05:40 BP 136 / 77; Pulse 87; Resp 19; Pulse Ox 97% on 2 lpm NC; ea 01:47 Body Mass Index 37.49 (132.45 kg, 187.96 cm) rr5 MDM: 01:47 Patient medically screened. rn 04:22 Differential Diagnosis dehydration, hyperglycemia, acute kidney injury, COVID. Data rn reviewed: vital signs, nurses notes, lab test result(s), EKG, radiologic studies, plain films, and as a result, I will admit patient. Counseling: I had a detailed discussion with the patient and/or guardian regarding: the historical points, exam findings, and any diagnostic results supporting the discharge/admit diagnosis, lab results, radiology results, the need for further work-up and treatment in the hospital. Response to treatment: the patient's symptoms have mildly improved after treatment, and as a result, I will admit patient. Admission orders: after a detailed discussion of the patient's condition and case, the admit orders are written by me. ED course: Pt with some improvement after fluids, still feels too weak to stand or walk. Creatinine elevated compared to last visit when it was normal. Likely 2/2 persistently elevated and uncontrolled hyperglycemia. Will admit to hospitalist service for further care. . 12/22 02:13 Order name: Urine Dipstick-Ancillary; Complete Time: 02:35 EDMO 12/22 02:16 Order name: Glucose, Ancillary Testing; Complete Time: 02:35 EDMO 12/22 02:24 Order name: Basic Metabolic Panel EDMO 12/22 02:24 Order name: Creatine Phosphokinase EDMO 12/22 02:24 Order name: Acetone Level EDMO 12/22 02:06 Order name: Chest Single View EDMO 12/22 02:24 Order name: Procalcitonin; Complete Time: 04:08 EDMO 12/22 02:24 Order name: CBC with Automated Diff; Complete Time: 04:37 EDMO 12/22 02:24 Order name: Urine Microscopic Only; Complete Time: 04:24 EDMO 12/22 02:24 Order name: Urine Culture [facility] 12/22 02:47 Order name: Manual Differential; Complete Time: 04:37 EDMO 12/22 03:23 Order name: COVID-19/FLU A+B; Complete Time: 03:30 EDMO 12/22 04:25 Order name: Blood Culture Adult (2) rn 12/22 04:25 Order name: PT-INR; Complete Time: 04:51 rn 12/22 04:25 Order name: Blood Culture EDMO 12/22 04:39 Order name: BNP la1 12/22 04:47 Order name: Troponin (Emerg Dept Use Only) EDMO 12/22 04:47 Order name: NT PRO-BNP EDMO 12/22 02:00 Order name: IV Start; Complete Time: 02:29 rn 12/22 02:00 Order name: Urine Dipstick-Ancillary (obtain specimen); Complete Time: 02:29 rn 12/22 02:00 Order name: Glucose Level; Complete Time: : rn 12/22 02:00 Order name: EKG; Complete Time: 03:09 rn 12/22 02:00 Order name: EKG - Nurse/Tech; Complete Time: 02:28 rn Administered Medications: 02:15 Drug: NS 0.9% 1000 ml Route: IV; Rate: 1000 ml; Site: right forearm; rr5 04:20 Drug: SOLU-Medrol (methylPrednisoLONE) 125 mg Route: IVP; Site: right forearm; rr5 05:50 Follow up: Response: No adverse reaction rr5 05:00 Drug: Xopenex (levalbuterol) 1.25 mg Route: Inhalation; rr5 05:50 Follow up: Response: No adverse reaction rr5 05:07 Not Given (Duplicate Order; not in pyxis): Vigamox (moxifloxacin) 0.5 % 1 drops rn Ophthalmic in both eyes once 05:12 Drug: LevaQUIN (levofloxacin) 500 mg Volume: 100 ml; Route: IVPB; Infused Over: 60 rr5 mins; Site: right forearm; 05:52 Follow up: Response: No adverse reaction; IV Status: Completed infusion; IV Intake: rr5 100ml 05:12 Drug: Ffthijan-Eyqmouewt-Dmjsrttift 2 drops Route: Ophthalmic; Site: both eyes; rr5 05:50 Follow up: Response: No adverse reaction rr5 Disposition: 12/22/20 04:26 Hospitalization ordered by Brett oSw for Observation. Preliminary diagnosis are Acute kidney failure, unspecified, Hyperglycemia, unspecified, Weakness, Chronic obstructive pulmonary disease with (acute) exacerbation, Conjunctivitis. - Bed requested for Telemetry/MedSurg (observation). - Status is Observation. rr5 - Condition is Stable. - Problem is new. - Symptoms have improved. Signatures: Dispatcher [employer] EDMS Yohana Denson RN RN mw Nieto, Roman, MD MD rn Attema, Lee, LAB[employer] JOIST-C [employer]ER [employer] JOIST-Cla1 Brett Acosta RN RN rr5 Corrections: (The following items were deleted from the chart) 02:06 02:01 Constitutional: Negative for fever, and weight loss, Eyes: Negative for injury, rn pain, redness, and discharge, ENT: + nasal congestion Cardiovascular: Negative for chest pain, palpitations, and edema, Respiratory: Negative for shortness of breath, and pleuritic chest pain, Abdomen/GI: Negative for abdominal pain, nausea, vomiting, diarrhea, and constipation, Back: Negative for injury and pain, : Negative for injury, bleeding, discharge, and swelling, + increased urination MS/Extremity: Negative for injury and deformity, Skin: Negative for injury, rash, and discoloration, Neuro: Negative for headache, numbness, tingling, and seizure, rn 03:13 03:09 Chest Single View+RAD.RAD.BRZ ordered. EDMO EDMS 04:32 03:09 CBC+H.LAB.BRZ ordered. [facility] EDMO 04:33 03:09 BASIC METABOLIC PANEL+C.LAB.BRZ ordered. [facility] EDMS 04:33 03:09 CREATINE PHOSPHOKINASE+C.LAB.BRZ ordered. [facility] EDMO 04:33 03:09 ACETONE, SERUM+C.LAB.BRZ ordered. [facility] EDMO 04:33 03:09 Influenza Screen (A \T\ B)+BA.LAB.BRZ ordered. EDMO EDMS 04:33 03:09 CORONAVIRUS+MR.LAB.BRZ ordered. [facility] EDMO 04:35 04:26 Hospitalization Ordered by Brett Sow MD for Observation. Preliminary mw diagnosis is Acute kidney failure, unspecified; Hyperglycemia, unspecified; Weakness. Bed requested for Telemetry/MedSurg (observation). Status is Observation. Condition is Stable. Problem is new. Symptoms have improved. rn 04:37 03:10 Procalcitonin+C.LAB.BRZ ordered. EDMO EDMS 04:47 03:09 Urine Culture+BA.LAB.BRZ ordered. EDMO EDMS 04:47 03:09 UA MICROSCOPIC+U.LAB.BRZ ordered. [facility] EDMO 04:47 04:39 NT PRO-BNP ordered. [facility] EDMO 04:47 04:39 TROPONIN (EMERG DEPT USE ONLY)+C.LAB.BRZ ordered. [facility] EDMO 04:51 04:35 12/22/2020 04:26 Hospitalization Ordered by Brett Sow MD for Observation. rn Preliminary diagnosis is Acute kidney failure, unspecified; Hyperglycemia, unspecified; Weakness. Bed requested for Telemetry/MedSurg (observation). Status is Observation. Condition is Stable. Problem is new. Symptoms have improved. mw 04:53 02:01 Constitutional: Overweight male, no acute distress Head/Face: Normocephalic, rn atraumatic. Eyes: + injected sclera with clear and green discharge and matteing of eyelids. ENT: dry MM Cardiovascular: Regular rate and rhythm. No pulse deficits. Respiratory: No increased work of breathing, no retractions or nasal flaring. Abdomen/GI: soft, non-tender Skin: Warm, dry, no cyanosis MS/ Extremity: Pulses equal, no cyanosis. Neurovascular intact. Full, normal range of motion. Neuro: Awake and alert, GCS 15, oriented to person, place, time, and situation. Motor strength 4/5 in all extremities. Sensory grossly intact. rn 04:53 04:51 12/22/2020 04:26 Hospitalization Ordered by Brett Sow MD for Observation. rn Preliminary diagnosis is Acute kidney failure, unspecified; Hyperglycemia, unspecified; Weakness; Chronic obstructive pulmonary disease with (acute) exacerbation. Bed requested for Telemetry/MedSurg (observation). Status is Observation. Condition is Stable. Problem is new. Symptoms have improved. rn 05:51 04:53 12/22/2020 04:26 Hospitalization Ordered by Brett Sow MD for Observation. rr5 Preliminary diagnosis is Acute kidney failure, unspecified; Hyperglycemia, unspecified; Weakness; Chronic obstructive pulmonary disease with (acute) exacerbation; Conjunctivitis. Bed requested for Telemetry/MedSurg (observation). Status is Observation. Condition is Stable. Problem is new. Symptoms have improved. rn
[2020-12-22 04:34] LABS: Blood Morphology Comment NOT SEEN (NOT SEEN); Platelet Estimate ADEQ
[2020-12-22 04:44] LABS: Protime INR 2.54
[2020-12-22] MEDS ORDERED: Levofloxacin500mg IV 500 MG/100 ML BAG IV ONE (04:49)
--- NOTE | 2020-12-22 05:09 | P.HP ---
Certification for Inpatient Patient admitted to: Observation With expected LOS: <2 Midnights Patient will require the following post-hospital care: None Practitioner: I am a practitioner with admitting privileges, knowledge of patient current condition, hospital course, and medical plan of care. Services: Services provided to patient in accordance with Admission requirements found in Title 42 Section 412.3 of the Code of Federal Regulations <KiannaRomel mendoza - Last Filed: 12/22/20 05:02> Patient History Date of Service: 12/22/20 Primary Care Provider: [place] Reason for admission: COPD exacerbation, JACI History of Present Illness: 60-year-old male with history of COPD, atrial fibrillation on chronic anticoagulation therapy, PAD, CAD status post CABG, diabetes mellitus type 2 presents emergency department for generalized weakness, shortness of breath, bilateral eye pain. Patient reports symptoms have been going on for a few days but worse today, does report cough with productive sputum as well. Workup in the emergency department significant for creatinine 1.76 GFR 39 BUN 23, no recent labs available for comparison the patient has had renal failure in the past. Pro calcitonin 0.08 INR 2.54, patient is taking Coumadin for AFib and artificial valve white blood cell count 9.9 with some left shift noted. Chest x-ray suggestive of possible mild overload pattern or infiltrate. Patient with expiratory wheezing on exam, patient given nebs, steroids, antibiotics, fluids in the emergency department. Patient also complaining of drainage from both eyes over the course of the last few days with pain in conjunctivitis. Patient given Vigamox in the emergency department. ED provider wishes to admit patient for COPD exacerbation, JACI, weakness. - Past Medical/Surgical History Diabetic: Yes -: Atrial fibrillation on chronic anticoagulation therapy-Coumadin -: Aortic valve replacement-porcine -: PAD -: CAD s/p CABG -: COPD -: Diabetes mellitus type 2 -: Hypertension -: Hyperlipidemia -: Porcine aortic valve replacement -: Arterial leg stenting -: CABG Psychosocial/ Personal History: Patient is retired, lives and cares for his mother - Family History Father -: Cancer Mother -: Cancer Brother -: Diabetes - Social History Smoking Status: Former smoker Alcohol use: No CD- Drugs: No Caffeine use: Yes Place of Residence: Home <Romel Calderón - Last Filed: 12/22/20 05:02> Date of Service: 12/22/20 <Brett Sow - Last Filed: 12/22/20 21:05> Allergies Iodinated Contrast Media [Iodinated Contrast Media - IV Dye] Allergy (Verified 10/20/15 08:14) Shortness of breath No Allergy (Uncoded 01/21/16 01:51) Unknown No Known Allergies Allergy (Uncoded 10/13/16 02:36) Unknown Home Medications: Atorvastatin Calcium 40 mg PO BEDTIME 10/21/15 Insulin Aspart [Novolog] 20 unit SQ TIDWM 10/21/15 Warfarin Sodium [Coumadin*] 5 mg PO SEECOM 10/21/15 Acetaminophen [Tylenol Extra Strength] 1 tab PO Q6H PRN 12/22/20 Albuterol Inhaler [Ventolin Inhaler*] 2 puff IH Q8H PRN 12/22/20 Amiodarone HCl [Cordarone*] 1 tab PO BID 12/22/20 Budesonide/Formoterol Fumarate [Symbicort 160-4.5 Mcg Inhaler] 2 puff IH BID 12/22/20 Clopidogrel Bisulfate [Plavix] 1 tab PO DAILY 12/22/20 Diltiazem HCl [Diltiazem ER] 1 tab PO DAILY 12/22/20 Docusate [Colace Cap*] 1 cap PO BID PRN 12/22/20 Empagliflozin [Jardiance] 12.5 mg PO DAILY 12/22/20 Insulin Glargine,Hum.rec.anlog [Lantus] 15 unit SQ BID 12/22/20 Lisinopril [Zestril] 1 tab PO DAILY 12/22/20 Mupirocin Oint [Bactroban 2% Ointment*] 1 jorge a TOP SEECOM PRN 12/22/20 Nitroglycerin 1 tab SL SEECOM PRN 12/22/20 Omeprazole 1 tab PO DAILY 12/22/20 Warfarin Sodium [Coumadin*] 10 mg PO SEECOM 12/22/20 Review of Systems 10-point ROS is otherwise unremarkable General: Weakness, Malaise Eyes: Conjunctivae Inflammation, Eyelid Inflammation, Redness, As per HPI Respiratory: Cough, Shortness of Breath, SOB with Excertion, Sputum <Romel Calderón - Last Filed: 12/22/20 05:02> Physical Examination - Physical Exam General: Alert, In no apparent distress, Oriented x3 HEENT: Atraumatic, Mucous membr. moist/pink, Other (Sclerae injected bilaterally, patient noted to have eyelid matting and some drainage) Neck: Supple, 2+ carotid pulse no bruit, No LAD Respiratory: Diminished, Expiratory wheezes (Mild bilaterally) Cardiovascular: No edema, Regular rate/rhythm, Normal S1 S2 Capillary refill: <2 Seconds Gastrointestinal: Normal bowel sounds, No tenderness Musculoskeletal: No tenderness Integumentary: No rashes Neurological: Normal speech, Normal strength at 5/5 x4 extr, Normal tone, Normal affect - Studies Laboratory Data (last 24 hrs) 12/22/20 02:05: PT 29.5 H, INR 2.54 12/22/20 02:05: Sodium 143, Potassium 3.9, BUN 23 H, Creatinine 1.76 H, Glucose 273 H 12/22/20 02:05: WBC 9.90, Hgb 13.9, Hct 41.1, Plt Count 125 L 12/22/20 02:00: Sodium Cancelled, Potassium Cancelled, BUN Cancelled, Creatinine Cancelled, Glucose Cancelled 12/22/20 02:00: WBC Cancelled, Hgb Cancelled, Hct Cancelled, Plt Count Cancelled <Romel Calderón - Last Filed: 12/22/20 05:02> - Studies Laboratory Data (last 24 hrs) 12/22/20 02:05: PT 29.5 H, INR 2.54 12/22/20 02:05: Sodium 143, Potassium 3.9, BUN 23 H, Creatinine 1.76 H, Glucose 273 H 12/22/20 02:05: WBC 9.90, Hgb 13.9, Hct 41.1, Plt Count 125 L 12/22/20 02:00: Sodium Cancelled, Potassium Cancelled, BUN Cancelled, Creatinine Cancelled, Glucose Cancelled 12/22/20 02:00: WBC Cancelled, Hgb Cancelled, Hct Cancelled, Plt Count Cancelled <Brett Sow - Last Filed: 12/22/20 21:05> Assessment and Plan - Plan Assessment COPD with exacerbation JACI/renal insufficiency Bilateral conjunctivitis Diabetes mellitus type 2 Atrial fibrillation/aortic valve replacement-porcine on chronic anticoagulation therapy with Coumadin Hypertension, hyperlipidemia, PAD, CAD status post CABG Plan COPD with exacerbation: Continue with IV steroids, nebulizer treatments, inhalers, IV antibiotics. Daily room air saturations. Anticipate clinical improvement next 24 hr. Continue Coumadin for DVT prophylaxis. JACI/renal insufficiency: Patient does have history of renal failure but his most recent creatinine was normal. Will obtain renal ultrasound, uric acid levels. Nephrology consult in place, continue gentle hydration. Bilateral conjunctivitis: Patient reports promptly conjunctivitis in the past, will continue with Vigamox 1 drop twice daily both eyes. Diabetes mellitus type 2: A.c. HS Accu-Cheks scale insulin therapy. A1c with morning labs. Atrial fibrillation/aortic valve replacement-porcine on chronic anticoagulation therapy with Coumadin: INR therapeutic at this time, will obtain and continue patient's home Coumadin dose. Will need to pay close attention to his INR during his treatment for COPD exacerbation including steroids. Hypertension, hyperlipidemia, PAD, CAD status post CABG: Obtain and continue home medications as appropriate. Stable at this time. Discharge Plan: Home Plan to discharge in: 24 Hours - Advance Directives Does patient have a Living Will: No Does patient have a Durable POA for Healthcare: No - Code Status/Comfort Care Code Status Assessed: Yes (Full code) Critical Care: No Time Spent Managing Pts Care (In Minutes): 55 <Romel Calderón - Last Filed: 12/22/20 05:02> - Plan plan of care reviewed as noted above acute on chronic COPD exacerbation - continue steroids,nebs,inhalers JACI - continue IVF, pt reports increases thirst/ water intake, but increased urination as well <Brett Sow - Last Filed: 12/22/20 21:05>
[2020-12-22] MEDS ORDERED: METHYLPREDNISOLONE 125 MG INJ ONE (05:14)
[2020-12-22] MEDS ORDERED: LEVALBUTEROL 1.25 MG/3 ML NEB ONE (05:14)
[2020-12-22 05:19] LABS: NT PRO-BNP 2358 pg/mL (<125); Troponin (Emerg Dept Use Only) 0.02 ng/mL (0.0-0.045)
[2020-12-22] MEDS ORDERED: NEOMYC/POLYMYX/GRAMICID OPTH 10 ML BTL ONE (05:26)
[2020-12-22 06:24] VITALS: BMI 36.1
[2020-12-22] MEDS ORDERED: ONDANSETRON 4 MG/2 ML VIAL IV PRN (06:33)
[2020-12-22] MEDS ORDERED: NA CHLORIDE 0.9% 1,000 ML IV SCH (06:33)
--- NOTE | 2020-12-22 07:35 | EKG ---
Test Date: 2020-12-22 Test Time: 01:58:21 Shear Operator Automatic: JOSE RAMON MEASUREMENT RESULTS: Intervals: Rate: 91 MO: 148 QRSD: 100 QT: 376 QTc: 462 [place]: P: 36 MO: 148 QRS: 62 T: 80 INTERPRETIVE STATEMENTS: Normal sinus rhythm Possible Left atrial enlargement Borderline ECG Compared to ECG 10/13/2016 00:08:41 No significant changes Electronically Signed On 12-22-20 07:34:54 CDT by Moises Dodd
[2020-12-22] MEDS: IPRATROPIUM BROM 0.5MG/2.5ML NEB SCH ×3 (08:02→19:50)
[2020-12-22] MEDS: ALBUTEROL 2.5 MG/3 ML NEB SOL NEB SCH ×3 (08:02→19:50)
[2020-12-22] MEDS: METHYLPREDNISOLONE 40 MG INJ IV SCH ×2 (08:47→16:47)
[2020-12-22] MEDS: INSULIN -REGULAR HUMAN 50 UNIT/0.5 ML ML SQ SCH ×4 (08:48→21:34)
[2020-12-22] MEDS: DULERA 100/5 (MOMETASONE/FORMOTEROL) INHALER IH SCH ×2 (08:53→21:37)
[2020-12-22] MEDS: MOXIFLOXACIN HCL 0.5% 3ML OPTH OPTH SCH ×2 (08:54→21:37)
[2020-12-22 09:20] LABS: Thyroid Stimulating Hormone 0.585 uIU/mL (0.360-3.740); Uric Acid 5.6 mg/dL (3.5-7.2)
[2020-12-22] MEDS ORDERED: POTASSIUM 25 MEQ EFFERV TAB PO ONE (10:29)
--- NOTE | 2020-12-22 11:25 | RAD REPORT ---
EXAM DESCRIPTION: CHRISTIANOChest Single View12/22/2020 2:17 am COMPARISON: None. CLINICAL HISTORY: [facility] MAIN GENERAL WEAKNESS, SOB FINDINGS: A single AP view of the chest demonstrates an enlarged cardiomediastinal silhouette with s urgical change. No pneumothorax or pleural effusion. Mild bilateral perihilar opacities are present. Osseous structures are intact. IMPRESSION: Cardiomegaly with mild bilateral perihilar opacities which favor pulmonary edema or bobby y infection. Electronically signed by: Austen Abernathy MD 12/22/2020 3:40 AM CDT Due to temporary technical issues with the PACS/Fluency reporting system, reports are being signed by the in house radiologist without review as a courtesy to ensure prompt reporting. The interpreting r adiologist is fully responsible for the content of the report.
[2020-12-22] MEDS: NA CHLORIDE 0.9% 1,000 ML IV SCH ×2 (12:35→21:31)
--- NOTE | 2020-12-22 13:00 | RAD REPORT ---
EXAM DESCRIPTION: US - Renal Ultrasound-Complete - 12/22/2020 11:14 am CLINICAL HISTORY: Acute renal insufficiency COMPARISON: None FINDINGS: The right kidney measures 11 cm with a normal echotexture. The left kidney measures 11 cm with a normal echotexture. Hydronephrosis is not seen. No gross abnormality of bladder IMPRESSION: Unremarkable renal ultrasound.
[2020-12-22] MEDS ORDERED: GLUCAGON 1 MG/VIAL IM PRN (13:08)
[2020-12-22] MEDS ORDERED: D50W 25 GM/50 ML SYRINGE IV PRN (13:08)
[2020-12-22] MEDS ORDERED: ALBUTEROL INHALER 60 PUFF/8 GM IH PRN (13:08)
[2020-12-22] MEDS ORDERED: DOCUSATE NA 100 MG CAP PO PRN (13:08)
[2020-12-22 13:19] LABS: Urine Protein/Creatinine Ratio 1.48 ratio (<0.15)
[2020-12-22] MEDS: WARFARIN SODIUM 5 MG TAB PO SCH (16:48)
[2020-12-22] MEDS: ACETAMINOPHEN 500 MG TAB PO PRN ×2 (16:48→21:34)
[2020-12-22] MEDS: INSULIN LISPRO 100 UNIT/1 ML SQ SCH (16:49)
[2020-12-22] MEDS ORDERED: INSULIN ASPART 100 UNIT/ML SQ SCH (17:00)
[2020-12-22] MEDS ORDERED: HOME MED 1 EA UNK (Budesonide/Formoterol Fumarate [Symbicort 160-4.5 Mcg Inhaler] 10.2 GM IH SCH (21:00)
[2020-12-22] MEDS ORDERED: INSULIN GLARGINE 100 UNITS/ML SQ SCH (21:00)
[2020-12-22] MEDS: AMIODARONE HCL 200 MG TAB PO SCH (21:35)
[2020-12-22] MEDS: ATORVASTATIN 40 MG TAB PO SCH (21:36)
--- NOTE | 2020-12-23 01:36 | CON ---
Date of Consultation: 12/22/2020 Reason For Consultation: Elevated BUN and creatinine and fluid management. History Of Present Illness: This is a pleasant 60-year-old gentleman with significant past medical history of hypertension, hyperlipidemia, diabetes complicated with neuropathy and nephropathy, coronary artery disease status post angioplasty, valvular heart disease status post valve replacement, chronic kidney disease status post acute kidney injury back in 2016. At that time, the patient required dialysis, continued dialysis for almost 4 months. Then, the patient was weaned according to the patient. The patient came to the hospital complaining of episode of fall. Primary workup showed elevation in creatinine 1.7 with GFR of 39. For that reason we are being consulted. The patient denied taking any nonsteroidal. No IV contrast. Chest x-ray was showing possible over volume. Patient denied taking any nonsteroidal. No IV contrast. No recent change in his medications. The patient complaining about pain in the back of his eyes. Past Medical History: Includes atrial fibrillation, on anticoagulation, aortic valve replacement, PAD, coronary artery disease status post CABG, COPD, diabetes complicated with neuropathy and nephropathy, hypertension, chronic kidney disease stage 3, status post dialysis, weaned. Past Surgical History: Includes, 1. CABG. 2. Valve replacement. 3. PTCA. Family History: Positive for cancer, hypertension and diabetes. Social History: Ex-smoke. Denied alcohol. Denied drugs abuse. Allergies: TO IODINE. Home Medications: Include insulin, atorvastatin, Coumadin, Plavix, diltiazem, Jardiance, lisinopril, nitroglycerin, omeprazole. Review of Systems: Head and Neck: Has headache. Has blurred vision. GI: No nausea. No vomiting. : No polyuria. No dysuria. No hematuria. DEHYDROGENATION CONVERTER HELPER: Not applicable. Respiratory: No shortness of breath. Cardiovascular: No chest pain. Endocrine: No polydipsia. Skin: No rash. Neuro: Has neuropathy. Has fall. Musculoskeletal: Generalized fatigue. Physical Examination: General: When I saw the patient, patient was lying in bed, comfortable, not in any distress. Vital Signs: Blood pressure of 132/65, pulse of 88 afebrile. Chest: Clear to auscultation. Heart: S1, S2. Regular rhythm. Abdomen: Soft, nontender. Extremities: No edema. Neurologic: Alert and oriented x3. No focal. Laboratory Data: WBC 9.9, H and H 13.9/41.1, platelet 125. Sodium 143, potassium 3.9, bicarb 22, BUN 23, creatinine 1.7, GFR of 39. CK of 821. BNP 2300. Chest x-ray, congestion. Calcium 8.3. Urinalysis, specific gravity of 1.025, +3 protein. PC ratio of 1.4 with +3 protein. Current Medications: In the hospital include 1. Plavix. 2. Coumadin. 3. Atorvastatin. 4. Diltiazem. 5. Moxifloxacin. 6. Zofran. 7. Pantoprazole. Assessment And Plan: 1. Chronic kidney disease with acute kidney injury, possible secondary to rhabdo, superimposed with prerenal secondary to glucose diuresis, superimposed with NATI inhibitor. Look to me on the dry side. I am going to go ahead and hold on the lisinopril. We will send for renal ultrasound, and we will start the patient on gentle hydration, and we will monitor. 2. Hypertension. With the presence of acute kidney injury, we will hold NATI inhibitor. 3. Rhabdomyolysis. Start the patient on hydration. We will follow up. 4. Disproportion between dipstick proteinuria and the quantification of the proteinuria. I am going to go ahead and send for UPEP to evaluate. Diabetes, as by primary. Thank you, Dr. Sow for allowing us to participate in the care of your patient. Time spent discussing with the patient, examining the patient, [id number] with the patient, placing orders, discussing the case with our merchandise flow team member including nursing, discussing the case with the other subspecialty including Cardiology and hospitalist 65 minutes. BRIDGET Voice ID: [id number] Report ID: [id number] KAIA
[2020-12-23] MEDS: ALBUTEROL 2.5 MG/3 ML NEB SOL NEB SCH ×4 (01:40→19:15)
[2020-12-23] MEDS: IPRATROPIUM BROM 0.5MG/2.5ML NEB SCH ×4 (01:40→19:15)
[2020-12-23 03:55] LABS: Absolute Lymphocytes (CBC) 0.4 K/uL (0.7-4.9); Basophils % 0.1 % (0-1.3); Hematocrit 38.9 % (39.6-49.0); Lymphocytes % 4.9 % (15.3-44.8); MPV 9.8 fL (7.6-11.3); RBC Red Blood Cell Count 4.46 M/uL (4.33-5.43)
[2020-12-23 03:59] LABS: Protime INR 2.29
[2020-12-23 04:14] LABS: Albumin 3.1 g/dL (3.4-5.0); Bilirubin Total 0.5 mg/dL (0.2-1.0); Magnesium 2.1 mg/dL (1.8-2.4); Phosphorus 3.4 mg/dL (2.5-4.9); Potassium 4.7 mmol/L (3.5-5.1); Protein, Total 7.1 g/dL (6.4-8.2)
[2020-12-23 07:36] LABS: Urine Appearance CLEAR (Clear); Urine Bilirubin NEGATIVE (Negative); Urine Blood TRACE (Negative); Urine Color YELLOW (Yellow); Urine Glucose 3+ (Negative); Urine Protein NEGATIVE (Negative); Urine Specific Gravity >=1.030 (1.005-1.030); Urine pH 5.5 (5.0-7.0)
--- NOTE | 2020-12-23 08:06 | P.PN ---
Subjective Date of Service: 12/23/20 Primary Care Provider: LOC Chief Complaint: COPD exacerbation, JACI Subjective: No new changes Physical Examination - Vital Signs Temperature: 97.1 F Blood Pressure: 113/57 Pulse: 77 Respirations: 20 Pulse Ox (%): 96 - Physical Exam General: Other (Appears as his stated age) HEENT: Atraumatic, Normocephalic Neck: Supple Respiratory: Other (Symmetric chest expansion) Cardiovascular: Normal S1 S2, No rubs, No murmurs Assessment And Plan - Plan # JACI 2/2 prerenal state + lisinopril SCr plateaued Baseline CKD2 CK mildly elevated Hold lisinopril Renal US unremarkable Cont NS IV gtt Monitor renal panel Recheck urine chem tomorrow to reassess prerenal vs ATN # COPD exacerbation Mngt per primary team # Htn BP ok Hold lisinopril # Afib Hx of AV replacement On coumadin & amiodarone
[2020-12-23 08:14] LABS: Urine Microscopic Reflex ORDER UMIC
[2020-12-23] MEDS: DILTIAZEM HCL 180 MG SR CAP PO SCH (08:42)
[2020-12-23] MEDS: CLOPIDOGREL 75 MG TABLET PO SCH (08:42)
[2020-12-23] MEDS: AMIODARONE HCL 200 MG TAB PO SCH ×2 (08:42→20:43)
[2020-12-23] MEDS: INSULIN LISPRO 100 UNIT/1 ML SQ SCH ×3 (08:43→16:25)
[2020-12-23] MEDS: INSULIN -REGULAR HUMAN 50 UNIT/0.5 ML ML SQ SCH ×4 (08:43→20:44)
[2020-12-23] MEDS: INSULIN GLARGINE 100 UNITS/ML SQ SCH ×2 (08:43→20:43)
[2020-12-23] MEDS: Levofloxacin500mg IV 500 MG/100 ML BAG IV SCH (08:43)
[2020-12-23] MEDS: PANTOPRAZOLE 40MG TABLET PO SCH (08:43)
[2020-12-23] MEDS: NA CHLORIDE 0.9% 1,000 ML IV SCH ×2 (08:46→22:37)
[2020-12-23 08:48] LABS: Urine Amorphous Sediment 1+ /HPF (NONE SEEN); Urine Bacteria NONE SEEN /HPF (NONE SEEN); Urine RBC NONE SEEN /HPF (NONE SEEN)
[2020-12-23] MEDS: MOXIFLOXACIN HCL 0.5% 3ML OPTH OPTH SCH ×3 (09:00→20:43)
[2020-12-23] MEDS ORDERED: METHYLPREDNISOLONE 40 MG INJ IV SCH (09:00)
[2020-12-23] MEDS: predniSONE 20 MG TAB PO SCH ×3 (09:00→20:42)
[2020-12-23] MEDS ORDERED: DILTIAZEM HCL 180 MG PO SCH (09:00)
[2020-12-23] MEDS ORDERED: HOME MED 1 EA UNK (Omeprazole [Omeprazole] 20 MG Tablet.Dr) PO SCH (09:00)
[2020-12-23] MEDS: DULERA 100/5 (MOMETASONE/FORMOTEROL) INHALER IH SCH ×3 (09:00→20:42)
[2020-12-23] MEDS: WARFARIN SODIUM 5 MG TAB PO SCH (16:25)
--- NOTE | 2020-12-23 17:24 | P.PN ---
Subjective Date of Service: 12/23/20 Primary Care Provider: LOC Chief Complaint: COPD exacerbation, JACI Subjective: Improving (on room air now, breathing better, ambulating better, eyes have improved. remains hyperglycemic but improved. pt upset, has been yelling since arrival to floor. angry at everyone/everything. upset that we do not want him to eat extra carbs in addition to his diabetic diet) Review of Systems 10-point ROS is otherwise unremarkable Physical Examination - Vital Signs Temperature: 98 F Blood Pressure: 129/69 Pulse: 85 Respirations: 17 Pulse Ox (%): 95 Assessment & Plan Physician Review Additional Text: Physical Exam General: Alert, NAD HEENT: mild injected sclera, b/l eyelids without any erythema/drainage Respiratory: Diminished, mild expiratory wheeze, nonlabored on RA Cardiovascular: No edema, Regular rate/rhythm, +II/ systolic murmur Abd: soft, NTND Ext: no tenderness, no rash Problem List acute on chronic COPD exacerbation JACI/renal insufficiency on CKD2 Bilateral conjunctivitis Diabetes mellitus type 2 Atrial fibrillation/aortic valve replacement-porcine on chronic anticoagulation therapy with Coumadin Hypertension, hyperlipidemia, PAD, CAD status post CABG continues steroids, nebs, inhalers improving renal function unchanged despite IVF b/l conjunctivitis improved continue coumadin, will continue at 5mg, pt alternates 5 and 10mg, on prednisone, concerned his INR will increase, mild nose bleed this morning continue home medications continue restricted diet pt reported some ongoing anginal pain, cardiology consulted Dispo: anticipate dc home in ~24hrs Time Spent Managing Pts Care (In Minutes): 35
[2020-12-23] MEDS: ATORVASTATIN 40 MG TAB PO SCH (20:42)
--- NOTE | 2020-12-23 21:58 | CON ---
Date of Consultation: 12/23/2020 Reason For Consultation: Angina. History Of Present Illness: A 60-year-old male with comprehensive cardiac history including coronary artery disease status post cardiac stents placement and severe peripheral vascular disease status po st multiple stents in the right lower extremity, has double valve replacement for endocarditis and hi story of endocarditis, questionable history of CABG, diabetes, hypertension, dyslipidemia, presented because he has concern about kidney failure. He has shortness of breath on exertion. The patient al so has atrial fibrillation on anticoagulation. He said that he gets shortness of breath and chest pa in with minimal exertion and gets better with rest, but sometimes gets symptoms at rest as well. Past Medical History: As outlined above in the HPI. Medications: Refer to reconciliation sheet for detailed list. Allergies: CONTRAST. Family History: History of diabetes. No premature coronary artery disease. Social History: Ex-smoker. Does not drink. Does not currently use any drugs. Review of Systems: All systems reviewed and they were negative except mentioned in the HPI. Physical Examination: Vital Signs: Temperature is 98.0, pulse 85, breathing at 17, blood pressure 139/69, saturating 95%. General: Pleasant middle-aged male, obese, no apparent distress. Head and Neck: Pupils are equal, reactive to light. Intact eye movements. No JVD. No cervical lym phadenopathy. Neck: Supple. Thyroid is not enlarged. LUNGS: Decreased breathing sounds. No accessory muscle use or muscle retraction. Heart: Irregularly irregular. No extra sounds. Abdomen: Soft, nontender. Bowel sounds positive. No organomegaly. No masses or hernia. No rigidi ty or rebound. Extremities: No clubbing, cyanosis. Skin: No rash noted. Neurologic: Alert, awake, oriented x3. No acute focal deficits appreciated. Investigations: Creatinine 1.77. Troponin less than 0.02. Hemoglobin is 12.7. EKG without acute s pecific abnormalities. Assessment And Recommendation: 1.Chest pain with known history of coronary artery disease. To see sets of cardiac enzymes. Obtain an echo and recommend to obtain an exercise nuclear stress test to further evaluate. If abnormal, t hen we will recommend coronary angiogram. 2.History of double valve replacement as per his report with shortness of breath. Obtain echocardio gram to evaluate the valve prosthesis and plan accordingly. Thank you for the consult. /ACL Voice ID: [id number] Report ID: [id number]
[2020-12-24] MEDS: ALBUTEROL 2.5 MG/3 ML NEB SOL NEB SCH ×3 (01:10→14:00)
[2020-12-24] MEDS: IPRATROPIUM BROM 0.5MG/2.5ML NEB SCH ×3 (01:10→14:00)
[2020-12-24 04:07] LABS: Protime INR 1.79
[2020-12-24 04:12] LABS: Absolute Lymphocytes (CBC) 0.5 K/uL (0.7-4.9); Basophils % 0.2 % (0-1.3); Hematocrit 39.8 % (39.6-49.0); Lymphocytes % 6.9 % (15.3-44.8); MPV 9.9 fL (7.6-11.3); RBC Red Blood Cell Count 4.59 M/uL (4.33-5.43)
[2020-12-24 04:13] LABS: Albumin 3.3 g/dL (3.4-5.0); Magnesium 2.2 mg/dL (1.8-2.4); Phosphorus 3.6 mg/dL (2.5-4.9); Potassium 4.3 mmol/L (3.5-5.1)
--- NOTE | 2020-12-24 05:22 | P.PN ---
Subjective Date of Service: 12/24/20 Primary Care Provider: [place] Chief Complaint: COPD exacerbation, JACI Underwent cardiac stress test today. Physical Examination - Vital Signs Temperature: 97.4 F Blood Pressure: 133/67 Pulse: 78 Respirations: 16 Pulse Ox (%): 96 - Physical Exam General: In no apparent distress HEENT: Atraumatic, Normocephalic Neck: Supple Respiratory: Clear to auscultation bilaterally Cardiovascular: No rubs, No murmurs Gastrointestinal: Soft and benign, Non-distended Musculoskeletal: No clubbing Neurological: Normal speech, Normal tone Assessment And Plan - Plan # JACI 2/2 prerenal state + lisinopril SCr plateaued at 1.7 Baseline CKD2; SCr 1.0 in 2017 CK mildly elevated Contn to hold lisinopril Renal US unremarkable Repeat urine chem on 12/24 showing ATN w/ high FeNa 3% D/t ATN, avoid neg fluid balance. Advised pt on liberal po fluid intake Low Na/heart healthy diet Monitor renal panel # COPD exacerbation Mngt per primary team # Htn BP ok Hold lisinopril # Afib, CAD s/p CABG Hx of AV replacement On coumadin & amiodarone Stress test on 12/24 abnormal Further eval/mngt per Cardiology # Dispo Dc when cardiac issues addressed States he has limited insurance and will only be able to follow up in the office with the [place] physicians only
[2020-12-24 05:43] LABS: Urine Protein/Creatinine Ratio 0.41 ratio (<0.15)
[2020-12-24] MEDS: INSULIN -REGULAR HUMAN 50 UNIT/0.5 ML ML SQ SCH ×4 (07:30→21:17)
[2020-12-24] MEDS: INSULIN LISPRO 100 UNIT/1 ML SQ SCH ×3 (08:00→16:19)
[2020-12-24] MEDS: Levofloxacin500mg IV 500 MG/100 ML BAG IV SCH (08:24)
[2020-12-24] MEDS: INSULIN GLARGINE 100 UNITS/ML SQ SCH ×2 (08:24→21:17)
[2020-12-24] MEDS: DULERA 100/5 (MOMETASONE/FORMOTEROL) INHALER IH SCH ×2 (08:24→21:15)
[2020-12-24] MEDS: MOXIFLOXACIN HCL 0.5% 3ML OPTH OPTH SCH ×2 (08:25→21:18)
[2020-12-24] MEDS ORDERED: REGADENOSON 0.4 MG/5 ML SYR IV ONE (09:00)
[2020-12-24] MEDS: DILTIAZEM HCL 180 MG SR CAP PO SCH (11:30)
[2020-12-24] MEDS: ACETAMINOPHEN 500 MG TAB PO PRN (11:30)
--- NOTE | 2020-12-24 11:30 | RAD REPORT ---
EXAM DESCRIPTION: NM - Rest Stress Cardiac Imaging - 12/24/2020 11:20 am CLINICAL HISTORY: Angina Chest pain. COMPARISON: No comparisons TECHNIQUE: The patient was administered approximately 10mCi of Tc 99m Sestamibi prior to resting SPE CT imaging of the heart. The patient was then administered approximately 30 mCi of Tc 99m Sestamibi f ollowing exercise or pharmacologic stress. Multiplanar SPECT images were reviewed. FINDINGS: There is evidence of a moderate sized area of mild stress-induced ischemia involving the L V lateral wall. No fixed defect is seen to suggest hibernating myocardium or scarred myocardium. The end diastolic volume is 156 ml, the end systolic volume is 68 ml, and the ejection fraction is 56 %. IMPRESSION: Stress-induced ischemia is suspected involving the LV lateral wall.
[2020-12-24] MEDS: CLOPIDOGREL 75 MG TABLET PO SCH (11:31)
[2020-12-24] MEDS: AMIODARONE HCL 200 MG TAB PO SCH ×2 (11:31→21:16)
[2020-12-24] MEDS: predniSONE 20 MG TAB PO SCH ×2 (11:31→21:16)
[2020-12-24] MEDS: PANTOPRAZOLE 40MG TABLET PO SCH (11:31)
[2020-12-24] MEDS ORDERED: ALBUTEROL 2.5 MG/3 ML NEB SOL NEB PRN (15:00)
[2020-12-24] MEDS: NA CHLORIDE 0.9% 1,000 ML IV SCH (16:21)
[2020-12-24] MEDS ORDERED: IPRATROPIUM BROM 0.5MG/2.5ML NEB PRN ×2 (16:22→16:46)
--- NOTE | 2020-12-24 17:50 | P.PN ---
Subjective Date of Service: 12/24/20 Primary Care Provider: LOC Chief Complaint: COPD exacerbation, JACI Subjective: Improving (on room air, breathing better, eyes are better. still with L chest pain. states over last 3 weeks or so he has had more chest pain) Review of Systems 10-point ROS is otherwise unremarkable Physical Examination - Vital Signs Temperature: 98.3 F Blood Pressure: 115/63 Pulse: 74 Respirations: 18 Pulse Ox (%): 95 - Studies Microbiology Data (last 24 hrs): 12/22/20 02:13 Clean Catch Urine Kamuela Count - Final BETWEEN 10,000 & 100,000 CFU/ML 12/22/20 02:13 Clean Catch Urine - Final MIXED ARTURO. Assessment & Plan Physician Review Additional Text: Physical Exam General: Alert, NAD HEENT: mild injected sclera, b/l eyelids without any erythema/drainage Respiratory: Diminished, minimal expiratory wheeze, nonlabored on RA Cardiovascular: trace b/l edema, Regular rate/rhythm, +II/ systolic murmur Abd: soft, NTND Ext: no tenderness, no rash Problem List acute on chronic COPD exacerbation JACI/renal insufficiency on CKD2 Bilateral conjunctivitis Diabetes mellitus type 2 Atrial fibrillation/aortic valve replacement-porcine on chronic anticoagulation therapy with Coumadin Hypertension, hyperlipidemia, PAD, CAD status post CABG continues steroids, nebs, inhalers improving renal function unchanged despite IVF b/l conjunctivitis improved continue home medications continue restricted diet pt reported some ongoing anginal pain, cardiology consulted scheduled for stress test and echo today Dispo: anticipate dc home in ~24hrs Time Spent Managing Pts Care (In Minutes): 35
[2020-12-24] MEDS: LORAZEPAM 0.5 MG TABLET PO PRN (18:14)
[2020-12-24] MEDS: GUAIFENESIN 600 MG SA TAB PO SCH (18:14)
[2020-12-24] MEDS ORDERED: MORPHINE 2 MG/ML SYR IV ONE (18:16)
[2020-12-24] MEDS: ATORVASTATIN 40 MG TAB PO SCH (21:15)
[2020-12-25] MEDS: MORPHINE 2 MG/ML SYR IV PRN ×2 (00:33→08:59)
[2020-12-25] MEDS: NA CHLORIDE 0.9% 1,000 ML IV SCH ×2 (02:39→15:45)
[2020-12-25] MEDS ORDERED: NITROGLYCERIN 0.4 MG/TAB SL PRN (06:15)
--- NOTE | 2020-12-25 07:23 | EKG ---
Test Date: 2020-12-24 Test Time: 18:27:14 Broom Machine Operator: MEÑO MEASUREMENT RESULTS: Intervals: Rate: 74 VA: 170 QRSD: 98 QT: 414 QTc: 459 [place]: P: 77 VA: 170 QRS: 80 T: 82 INTERPRETIVE STATEMENTS: Normal sinus rhythm Normal ECG Compared to ECG 12/22/2020 01:58:21 No significant changes Electronically Signed On 12-25-20 07:21:54 CDT by Moises Dodd
--- NOTE | 2020-12-25 07:23 | EKG ---
Test Date: 2020-12-24 Test Time: 18:37:47 Snake Charmer: MEÑO MEASUREMENT RESULTS: Intervals: Rate: 74 VA: 166 QRSD: 102 QT: 404 QTc: 448 [place]: P: 78 VA: 166 QRS: 80 T: 83 INTERPRETIVE STATEMENTS: Normal sinus rhythm Normal ECG Compared to ECG 12/24/2020 18:27:14 No significant changes Electronically Signed On 12-25-20 07:21:53 CDT by Moises Dodd
[2020-12-25 08:54] LABS: Albumin 3.2 g/dL (3.4-5.0); Phosphorus 3.2 mg/dL (2.5-4.9); Potassium 4.5 mmol/L (3.5-5.1)
[2020-12-25] MEDS: AMIODARONE HCL 200 MG TAB PO SCH ×2 (08:56→20:44)
[2020-12-25] MEDS: GUAIFENESIN 600 MG SA TAB PO SCH ×2 (08:57→20:44)
[2020-12-25] MEDS: predniSONE 20 MG TAB PO SCH ×2 (08:57→20:44)
[2020-12-25] MEDS: DILTIAZEM HCL 180 MG SR CAP PO SCH (08:57)
[2020-12-25] MEDS: CLOPIDOGREL 75 MG TABLET PO SCH (08:58)
[2020-12-25] MEDS: PANTOPRAZOLE 40MG TABLET PO SCH (08:58)
[2020-12-25] MEDS: Levofloxacin500mg IV 500 MG/100 ML BAG IV SCH (09:00)
[2020-12-25] MEDS: DULERA 100/5 (MOMETASONE/FORMOTEROL) INHALER IH SCH ×2 (09:00→20:55)
[2020-12-25] MEDS: INSULIN -REGULAR HUMAN 50 UNIT/0.5 ML ML SQ SCH ×4 (09:01→20:46)
[2020-12-25] MEDS: INSULIN GLARGINE 100 UNITS/ML SQ SCH ×2 (09:02→20:45)
[2020-12-25] MEDS: INSULIN LISPRO 100 UNIT/1 ML SQ SCH ×3 (09:02→18:40)
[2020-12-25] MEDS: MOXIFLOXACIN HCL 0.5% 3ML OPTH OPTH SCH ×2 (09:03→20:47)
[2020-12-25] MEDS: LORAZEPAM 0.5 MG TABLET PO PRN ×2 (11:24→23:57)
--- NOTE | 2020-12-25 11:36 | RAD REPORT ---
EXAM DESCRIPTION: RAD - Chest Single View - 12/25/2020 10:54 am CLINICAL HISTORY: shortness of breath COMPARISON: Portable December 22 ; September 2006 2 TECHNIQUE: AP portable chest image was obtained 12/25/2020 10:54 am . FINDINGS: Pleural effusion has developed in the right lung base with infiltrate and/ or atelectasis new from December 22 imaging. Left lung field and upper right lung field are clear. Heart size is promin ent but not substantially different from comparison 2017 study. No pneumothorax peer No acute bony ab normality seen. No acute aortic findings suspected. IMPRESSION: New infiltrate and/ or atelectasis in the right base with pleural fluid.
--- NOTE | 2020-12-25 11:48 | P.PN ---
Subjective Date of Service: 12/25/20 Primary Care Provider: LOC Chief Complaint: COPD exacerbation, JACI Subjective: Other (reports some ongoing L chest pain, feels throbbing in nature, not worsened/alleviated by anything. no SOB, no nausea/vomiting/diarrhea. Feels some slight chest/nasal congestion.) Review of Systems 10-point ROS is otherwise unremarkable Physical Examination - Vital Signs Temperature: 97 F Blood Pressure: 140/72 Pulse: 66 Respirations: 18 Pulse Ox (%): 96 - Studies Microbiology Data (last 24 hrs): 12/22/20 02:13 Clean Catch Urine [place] Count - Final BETWEEN 10,000 & 100,000 CFU/ML 12/22/20 02:13 Clean Catch Urine - Final MIXED ARTURO. Assessment & Plan Physician Review Additional Text: Physical Exam General: Alert, NAD HEENT: normal conjunctiva, sclera anicteric, b/l eyelids without any erythema/drainage Respiratory: Diminished at bases, nonlabored on RA Cardiovascular: trace b/l edema, Regular rate/rhythm, +II/ systolic murmur Abd: soft, NTND MSK: mild TTP on L chest wall just lateral to sternum Ext: no tenderness, no rash Problem List acute on chronic COPD exacerbation JACI/renal insufficiency on CKD2 Unstable Angina, +stress test Bilateral conjunctivitis Diabetes mellitus type 2, insulin dependent Atrial fibrillation/aortic valve replacement-porcine on chronic anticoagulation therapy with Coumadin Hypertension, hyperlipidemia, PAD, CAD status post CABG continues steroids, nebs, inhalers, on room air nephrology consulted for JACI/CKD, dc'd IVF today b/l conjunctivitis improved continue home medications continue restricted diet pt reported some ongoing anginal pain, cardiology consulted - positive stress test plan for cardiac cath Sunday, need to bridge off coumadin with lovenox - last coumadin received on 12/23 morphiine ordered last night for chest pain, restart nitroglycerin SL PRN for chest pain as well Dispo: anticipate dc home after cardiac catheterization Time Spent Managing Pts Care (In Minutes): 35
[2020-12-25] MEDS ORDERED: D50W 25 GM/50 ML VIAL IV PRN (12:00)
[2020-12-25] MEDS ORDERED: ALBUTEROL 2.5 MG/3 ML NEB SOL NEB PRN (12:00)
--- NOTE | 2020-12-25 12:09 | PN ---
Date of Progress Note: 12/24/2020 Reason For Consultation: Chest pain. History Of Present Illness: Mr. Swift is allergic to iodine. He has history of CABG, aortic valve replacement. He takes Coumadin. His stress test came back positive for ischemia in the lateral wal l with ejection fraction of 56%. I think he needs to have a heart catheterization done. We need to hold Coumadin. Put him on Lovenox. Follow his INR. His INR needs to be less than 1.5 before we can do a catheterization. His creatinine is 1.77. So, he will need Mucomyst. He is allergic to iodine . He will need prednisone. Keep him in the hospital hopefully with the catheterization on Sunday. No change in medicine at this point. He is asymptomatic now. 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 He is following the patient with Dr. Sow. BRUCE/OSCAR Voice ID: [id number] Report ID: [id number]
[2020-12-25] MEDS: MORPHINE 4 MG/ML SYR IV PRN ×3 (13:15→22:54)
--- NOTE | 2020-12-25 14:25 | RAD REPORT ---
EXAM DESCRIPTION: RAD - Chest Single View - 12/25/2020 1:59 pm CLINICAL HISTORY: SOB COMPARISON: December 22 TECHNIQUE: AP portable chest image was obtained 12/25/2020 1:59 pm . FINDINGS: Lung volumes remain low. No focal consolidation. Cardiomegaly is present with vascular eng orgement and prominent central interstitial pattern. Sternotomy wires are in place. Heart and vascula ture are normal. No measurable pleural effusion and no pneumothorax. No acute bony abnormality seen. No acute aortic findings suspected. IMPRESSION: Failure/ volume overload pattern is not substantially different from comparison. No focal consolidations seen that would indicate developing bacterial pneumonia.
--- NOTE | 2020-12-25 15:09 | PN ---
Date of Progress Note: 12/25/2020 Subjective: for chest pain. Has a very complicated past medical history including CAD st atus post CABG. He is also status post stent in the coronary. He has a history to 2 valves replacem ent; 1 aortic, 1 mitral. Echocardiogram showed that these are functioning appropriately with normal ejection fraction. He has a stress test showing lateral ischemia. Continues to have chest pain, leg pain and just not feeling well in general. He has also . We will discontinue Coumadin fo r now and Lovenox. Watch his INR, heart catheterization in Sunday. BRUCE/OSCAR Voice ID: [id number] Report ID: [id number]
--- NOTE | 2020-12-25 15:39 | PN ---
Date of Progress Note: 12/25/2020 Subjective: The patient was admitted with acute kidney injury secondary to cardiorenal, poor perfusion, acute tubular necrosis. The patient had non-ST elevation [place]. Physical Examination: Vital Signs: Blood pressure 140/72, pulse of 66, afebrile. The patient had good urine output of 1200. Chest: Faint thrill bilateral. Heart: S1, S2. Regular. Abdomen: Soft, nontender. Extremities: No edema. Neurologic: Alert. No focal. Laboratory Data: WBC 7.3, H and H 13.2/39. Sodium 137, potassium 4.4, bicarb 24, BUN 37, creatinine 1.5, calcium 8.5, magnesium 3.2, albumin 3.2. Current Medications: 1. Levaquin. 2. Plavix. 3. Amiodarone. 4. Atorvastatin. 5. Diltiazem 180. 6. Nitroglycerin. 7. Pantoprazole. Assessment And Plan: 1. Acute kidney injury on chronic kidney disease, back to his baseline. I am going to continue to monitor the patient. The patient planned for cardiac cath Sunday. We will start the patient on Mucomyst and I am going to get chest x-ray to evaluate to resume any IV fluid. We will hold IV fluid for today. 2. Hypertension, controlled optimal. 3. Non-ST elevation myocardial infarction. Plan for cath as above. 4. Rhabdomyolysis, status post hydration, resolved. I am going to order for repeated CK. 5. Disproportion. Spot urine and PC ratio. I can request UPEP. Time spent discussing with the patient, examining the patient, exnc-le-plys with the patient, placing orders, discussing the case with our prepared foods service team member including nursing, discussing the case with the other subspecialty including Cardiology and hospitalist 35 minutes. BRIDGET Voice ID: [id number] Report ID: [id number] KAIA
[2020-12-25] MEDS: ATORVASTATIN 40 MG TAB PO SCH (20:44)
[2020-12-25] MEDS: ACETYLCYST 20% 800 MG/4 ML VIAL PO SCH (21:00)
[2020-12-25 21:35] LABS: Protime INR 1.76
[2020-12-26] MEDS: MORPHINE 4 MG/ML SYR IV PRN ×5 (03:44→21:32)
[2020-12-26 07:29] LABS: Protime INR 1.58
[2020-12-26 07:32] LABS: Absolute Lymphocytes (CBC) 0.5 K/uL (0.7-4.9); Basophils % 0.1 % (0-1.3); Hematocrit 38.7 % (39.6-49.0); Lymphocytes % 8.3 % (15.3-44.8); MPV 10.3 fL (7.6-11.3); RBC Red Blood Cell Count 4.49 M/uL (4.33-5.43)
[2020-12-26 07:35] LABS: Albumin 3.1 g/dL (3.4-5.0); Phosphorus 3.4 mg/dL (2.5-4.9); Potassium 4.7 mmol/L (3.5-5.1)
[2020-12-26] MEDS: Levofloxacin500mg IV 500 MG/100 ML BAG IV SCH (08:30)
[2020-12-26] MEDS: ACETYLCYST 20% 800 MG/4 ML VIAL PO SCH ×2 (08:30→21:00)
[2020-12-26] MEDS: DULERA 100/5 (MOMETASONE/FORMOTEROL) INHALER IH SCH ×2 (08:30→21:29)
[2020-12-26] MEDS: predniSONE 20 MG TAB PO SCH (08:31)
[2020-12-26] MEDS: AMIODARONE HCL 200 MG TAB PO SCH ×2 (08:31→21:28)
[2020-12-26] MEDS: PANTOPRAZOLE 40MG TABLET PO SCH (08:31)
[2020-12-26] MEDS: DILTIAZEM HCL 180 MG SR CAP PO SCH (08:32)
[2020-12-26] MEDS: CLOPIDOGREL 75 MG TABLET PO SCH (08:32)
[2020-12-26] MEDS: GUAIFENESIN 600 MG SA TAB PO SCH ×2 (08:33→21:28)
[2020-12-26] MEDS: INSULIN GLARGINE 100 UNITS/ML SQ SCH ×2 (08:34→21:00)
[2020-12-26] MEDS: INSULIN LISPRO 100 UNIT/1 ML SQ SCH ×3 (08:34→17:22)
[2020-12-26] MEDS: INSULIN -REGULAR HUMAN 50 UNIT/0.5 ML ML SQ SCH ×4 (08:35→21:00)
[2020-12-26] MEDS: MOXIFLOXACIN HCL 0.5% 3ML OPTH OPTH SCH ×2 (08:35→21:30)
[2020-12-26 08:49] LABS: Blood Morphology Comment NOT SEEN (NOT SEEN); Platelet Estimate ADEQ; White Blood Cell Scan OK (OK)
[2020-12-26] MEDS: LORAZEPAM 0.5 MG TABLET PO PRN (11:49)
--- NOTE | 2020-12-26 14:03 | P.PN ---
Subjective Date of Service: 12/26/20 Primary Care Provider: LOC Chief Complaint: COPD exacerbation, JACI Subjective: No new changes (doing ok, no significant change with chest pain, morphine helps.) Review of Systems 10-point ROS is otherwise unremarkable Physical Examination - Vital Signs Temperature: 96.9 F Blood Pressure: 109/55 Pulse: 69 Respirations: 18 Pulse Ox (%): 95 Assessment & Plan Physician Review Additional Text: Physical Exam General: Alert, NAD HEENT: normal conjunctiva, sclera anicteric Respiratory: Diminished at bases, nonlabored on RA Cardiovascular: trace b/l edema, Regular rate/rhythm, +II/ systolic murmur Abd: soft, NTND MSK: mild TTP on L chest wall just lateral to sternum Ext: no tenderness, no rash Problem List acute on chronic COPD exacerbation JACI/renal insufficiency on CKD2 Unstable Angina, +stress test Bilateral conjunctivitis Diabetes mellitus type 2, insulin dependent Atrial fibrillation/aortic valve replacement-porcine on chronic anticoagulation therapy with Coumadin Hypertension, hyperlipidemia, PAD, CAD status post CABG continue nebs, inhalers, on room air; completed 4 days of steroids nephrology consulted for JACI/CKD, improving b/l conjunctivitis improved continue home medications continue restricted diet pt reported some ongoing anginal pain, cardiology consulted - positive stress test plan for cardiac cath Sunday, bridging off coumadin with lovenox - last coumadin received on 12/23 morphine ordered last night for chest pain, restart nitroglycerin SL PRN for chest pain, pt requesting higher doses of morphine Dispo: anticipate dc home after cardiac catheterization pt states he needs to care for his mom at home also states he [facility] he would be able to use to bridge back on to coumadin Time Spent Managing Pts Care (In Minutes): 35
--- NOTE | 2020-12-26 15:07 | PN ---
Date of Progress Note: 12/26/2020 Subjective: The patient was admitted with non-ST elevation [place], acute kidney injury on chronic kidney disease with rhabdo and fall. The patient planned for cardiac cath tomorrow. Physical Examination: Vital Signs: Blood pressure 136/70, pulse 71, afebrile. The patient had good urine output of 2400. Chest: Clear to auscultation. Heart: S1, S2. Regular. Abdomen: Soft, nontender. Extremities: No edema. Neuro: No focality. Laboratory Data: WBC 5.9, H and H 12.7/38.7. Sodium 138, potassium 4.7, bicarb 27, BUN 33, creatinine 1.5, GFR of 47, calcium 8.1, phosphorus 3.4, albumin 3.1. Current Medications: The patient on include; 1. Levaquin. 2. Plavix. 3. Lovenox. 4. Atorvastatin. 5. Amiodarone. 6. Diltiazem 180. 7. Nitroglycerin. 8. Moxifloxacin. 9. Pantoprazole. 10. Insulin. Assessment And Plan: 1. Chronic kidney disease status post acute kidney injury, back to baseline, secondary to rhabdomyolysis and cardiorenal, recovered. The patient planned for cardiac cath tomorrow. I had long discussion with the patient regarding risks, benefits, and alternatives. The patient understanding the risk of kidney injury including possible needing renal replacement therapy, agreed. We will start the patient on IV fluid 50 per hour 10 to 12 hours before and after and we will monitor. We will start the patient on Mucomyst even though there is no clear data to support. 2. Rhabdomyolysis, recovered, resolved. 3. Hypertension, controlled, optimal. Continue current medication. 4. Coronary artery disease, non-ST elevation myocardial infarction. Plan for catheterization tomorrow as above. Time spent discussing with the patient, examining the patient, kgca-he-[id number] with the patient, placing orders, discussing the case with our meat team lead including nursing, discussing the case with the other subspecialty including Cardiology and hospitalist 35 minutes. BRIDGET Voice ID: [id number] Report ID: [id number] MTDMarkos
[2020-12-26] MEDS: ATORVASTATIN 40 MG TAB PO SCH (21:27)
[2020-12-27] MEDS: LORAZEPAM 0.5 MG TABLET PO PRN ×2 (00:15→21:14)
[2020-12-27 00:20] LABS: Vitamin D 1,25-Dihydroxy Total 36 pg/mL (18-72); Vitamin D,1,25-OH2, D2 <8 pg/mL
[2020-12-27] MEDS: MORPHINE 4 MG/ML SYR IV PRN ×4 (04:46→21:03)
[2020-12-27 06:21] LABS: Protime INR 1.37
[2020-12-27 06:30] LABS: Phosphorus 3.5 mg/dL (2.5-4.9); Potassium 3.9 mmol/L (3.5-5.1)
[2020-12-27] MEDS: INSULIN -REGULAR HUMAN 50 UNIT/0.5 ML ML SQ SCH ×4 (07:30→20:57)
[2020-12-27] MEDS ORDERED: INSULIN LISPRO 100 UNIT/1 ML SQ SCH (08:00)
[2020-12-27] MEDS ORDERED: INSULIN GLARGINE 100 UNITS/ML SQ SCH (08:00)
[2020-12-27] MEDS: INSULIN LISPRO 100 UNIT/1 ML SQ SCH ×3 (08:00→17:00)
--- NOTE | 2020-12-27 08:10 | ECHO ---
HEIGHT: 6 ft 2 in WEIGHT: 285 lb 12.8 oz DATE OF STUDY: 12/24/[address]: Chase Currie 2-DIMENSIONAL: YES M.MODE: YES DOPPLER: YES COLOR FLOW: YES TDS: NO PORTABLE: NO DEFINITY: NO BUBBLE STUDY: NO DIAGNOSIS: ANGINA CARDIAC HISTORY: CATHERIZATION: YES SURGERY: YES PROSTHETIC VALVE: YES PACEMAKER: NO MEASUREMENTS (cm) DIASTOLIC (NORMALS) SYSTOLIC (NORMALS) IVSd 1.1 (0.6-1.2) LA Diam 4.0 (1.9-4.0) LVEF 51% LVIDd 4.8 (3.5-5.7) LVIDs 3.6 (2.0-3.5) %FS 26% LVPWd 1.2 (0.6-1.2) Ao Diam 2.9 (2.0-3.7) 2 DIMENSIONAL ASSESSMENT: RIGHT ATRIUM: NORMAL LEFT ATRIUM: NORMAL RIGHT VENTRICLE: NORMAL LEFT VENTRICLE: NORMAL TRICUSPID VALVE: NORMAL MITRAL VALVE: NORMAL PULMONIC VALVE: NORMAL AORTIC VALVE: NORMAL PERICARDIAL EFFUSION: NONE AORTIC ROOT: NORMAL LEFT VENTRICULAR WALL MOTION: NORMAL DOPPLER/COLOR FLOW: NORMAL COMMENTS: NORMAL LEFT VENTRICULAR SIZE AND FUNCTION. NORMAL BIOPROSTHETIC AORTIC VALVE FUNCTION. NO EFFUISON. TECHNOLOGIST: Meka NO
--- NOTE | 2020-12-27 08:14 | TREADPHA ---
DX: CHEST PAIN Date of Study: 12/24/2020 Ht: 6' 2 " Wt: 285 lb 12.8 oz Consulting Physician: TRAN MEDICATIONS: LIPITOR, PLAVIX, NOVOLIN-R, COUMADIN HISTORY: HYPERTENSION, CEREBRAL VASCULAR ACCIDENT, ATRIAL FIBRILLATION, AORTIC VALVE REPLACEMENT. PHYSICIAL EXAMINATION: RESTING B.P.: 115/69 RESTING H.R.: 69 RESTING EKG: SINUS RHYTHM, LEFT VENTRICULAR HYPERTENSION. PROTOCOL: LEXISCAN EXERCISE TIME: 3:30 B.P. AT PEAK STRESS: 115/66 IMPRESSION: LEXISCAN INJECTED. CARDIOLITE INJECTED PER PROTOCOL. SEE NUCLEAR MEDICINE REPORT. NO SUPRAVENTRICULAR TACHYCARDIA. NO VENTRICULAR TACHYCARDIA. NO PREMATURE COMPLEXES.
[2020-12-27] MEDS: PANTOPRAZOLE 40MG TABLET PO SCH (08:54)
[2020-12-27] MEDS: AMIODARONE HCL 200 MG TAB PO SCH ×2 (08:54→21:02)
[2020-12-27] MEDS: CLOPIDOGREL 75 MG TABLET PO SCH (08:54)
[2020-12-27] MEDS: GUAIFENESIN 600 MG SA TAB PO SCH ×2 (08:54→21:14)
[2020-12-27] MEDS: ACETYLCYST 20% 800 MG/4 ML VIAL PO SCH (08:55)
[2020-12-27] MEDS: Levofloxacin500mg IV 500 MG/100 ML BAG IV SCH (08:56)
[2020-12-27] MEDS: DULERA 100/5 (MOMETASONE/FORMOTEROL) INHALER IH SCH ×2 (08:57→21:00)
[2020-12-27] MEDS: MOXIFLOXACIN HCL 0.5% 3ML OPTH OPTH SCH ×2 (08:57→21:00)
[2020-12-27] MEDS ORDERED: POTASSIUM CL SA 10 MEQ TAB PO ONE (09:00)
[2020-12-27] MEDS: INSULIN GLARGINE 100 UNITS/ML SQ SCH ×2 (09:00→21:00)
[2020-12-27] MEDS: DILTIAZEM HCL 180 MG SR CAP PO SCH (09:00)
--- NOTE | 2020-12-27 12:53 | PN ---
Date of Progress Note: 12/26/2020 Mr. Swift has been followed for chest pain, CAD, status post CABG, status post valve replacement se condary to endocarditis. Has been on Coumadin. Had a positive stress test. Continues to have inter mittent chest pain throughout the day, relieved with high doses of morphine. EKG did not show any ch anges. Troponin remains negative. We will continue him on Lovenox, off Coumadin. We will await for INR to be about 1.5. Plan for a catheterization on 12/27/2020. The patient understands the risk an d the benefits of the procedure and he agreed to proceed. We will resume Coumadin after the catheter ization. BRUCE/MODL Voice ID: [id number] Report ID: [id number]
--- NOTE | 2020-12-27 13:11 | P.PN ---
Subjective Date of Service: 12/27/20 Primary Care Provider: LOC Chief Complaint: COPD exacerbation, JACI Subjective: No new changes (overall feels ok, reports no change in chest pain, eyes have gotten back to normal, no abdominal pain, urinating without issue, ambulating ok, breathing comfortably on room air) Review of Systems 10-point ROS is otherwise unremarkable Physical Examination - Vital Signs Temperature: 97.3 F Blood Pressure: 110/70 Pulse: 71 Respirations: 19 Pulse Ox (%): 96 - Studies Microbiology Data (last 24 hrs): 12/22/20 05:15 Blood - Blood Aerobic Blood Culture - Final No growth in 5 days. 12/22/20 05:15 Blood - Blood Anaerobic Blood Culture - Final No growth in 5 days. 12/22/20 04:30 Blood - Blood Aerobic Blood Culture - Final No growth in 5 days. 12/22/20 04:30 Blood - Blood Anaerobic Blood Culture - Final No growth in 5 days. Assessment & Plan Physician Review Additional Text: Physical Exam General: Alert, NAD HEENT: normal conjunctiva, sclera anicteric Respiratory: Diminished at bases, nonlabored on RA Cardiovascular: trace b/l edema, Regular rate/rhythm, +II/ systolic murmur Abd: soft, NTND Ext: no tenderness, no rash Problem List acute on chronic COPD exacerbation JACI/renal insufficiency on CKD2 Unstable Angina, +stress test Bilateral conjunctivitis Diabetes mellitus type 2, insulin dependent Atrial fibrillation/aortic valve replacement-porcine on chronic anticoagulation therapy with Coumadin Hypertension, hyperlipidemia, PAD, CAD status post CABG continue nebs, inhalers, on room air; completed 4 days of steroids nephrology consulted for JACI/CKD, improving, initially received some IVF b/l conjunctivitis improved continue home medications continue restricted diet pt reported some ongoing anginal pain, cardiology consulted - positive stress test plan for cardiac cath today, bridged off coumadin with lovenox - last coumadin received on 12/23 morphine ordered for chest pain, restarted nitroglycerin SL PRN for chest pain a swell, however pt states it does not help Dispo: anticipate dc home tomorrow, will need to monitor renal function after cardiac cath pt states he needs to care for his mom at home and plans on returning home upon discharge states he has [facility] he would be able to use to bridge back on to coumadin Time Spent Managing Pts Care (In Minutes): 35
[2020-12-27] MEDS ORDERED: ATROPINE SULF 1 MG/10 ML SYR IV ONE (15:28)
[2020-12-27] MEDS ORDERED: HEPARIN 5000 UNIT/ML 1 ML VIAL ONE (15:29)
[2020-12-27] MEDS ORDERED: MIDAZOLAM HCL 2 MG/2 ML INJ ONE (15:29)
[2020-12-27] MEDS ORDERED: HEPARIN 10,000 UNIT/10 ML VIAL IV ONE (15:30)
[2020-12-27] MEDS ORDERED: FENTANYL CITR 100 MCG/2 ML ONE (15:30)
[2020-12-27] MEDS ORDERED: VERAPAMIL HCL 10 MG/4 ML VIAL IV ONE (15:30)
[2020-12-27] MEDS ORDERED: METHYLPREDNISOLONE 125 MG INJ ONE (16:08)
[2020-12-27] MEDS ORDERED: DIPHENHYDRAMINE 50 MG/ML VIAL ONE (16:13)
[2020-12-27] MEDS: NA CHLORIDE 0.9% 1,000 ML IV SCH ×2 (18:51)
[2020-12-27] MEDS ORDERED: ACETYLCYST 20% 800 MG/4 ML VIAL PO ONE (19:00)
--- NOTE | 2020-12-27 20:23 | OP ---
Date of Procedure: 12/27/2020 Surgeon: ELIAS EPPERSON Procedure Performed: Selective coronary angiogram with bypass graft study. Indication: Unstable angina with abnormal stress test. Access: Right femoral artery 6-Fijian closed with 6-Fijian Angio-Seal. Complications: None. Bleeding: Less than 10 mL. Description Of Procedure: After risks, benefits, and alternatives were explained, the patient agreed to the procedure and signed informed consent. The patient was brought into the cardiac catheterizat ion laboratory, prepped and draped in usual sterile fashion. Then, we accessed right femoral artery using ultrasound guidance of fluoroscopy and placed a 6-Fijian [place] sheath and then took a 6-Fren ch JL4 catheter into the aortic root, engaged left main, took standard views and then 6-Fijian JR4 ca theter into the aortic root, engaged the RCA and SVG to RCA and ACEVEDO, took standard views and then re moved the catheter and the sheath was removed and placed 6-Fijian Angio-Seal with good hemostasis at the access site. Findings: 1.Left main is normal. 2.LAD; proximal 80% stenosis. 3.Diagonal 1 branch has a patent stent. 4.Left circumflex; small artery. OM 1 branch has 70% proximal disease, but small vessel. 5.RCA; large dominant with a proximal 60%, distal 50%. Grafts: 1.Patent ACEVEDO to diagonal 2 that fills back to the LAD. 2.Patent SVG to RCA, but it is aneurysmal. Conclusion: Coronary artery disease as above. Plan: Medical management. /OSCAR Voice ID: [id number] Report ID: [id number]
[2020-12-27] MEDS: ATORVASTATIN 40 MG TAB PO SCH (21:02)
--- NOTE | 2020-12-28 00:35 | PN ---
Date of Progress Note: 12/27/2020 Chief Complaint: Acute on chronic kidney injury, cardiorenal syndrome. History Of Present Illness: The patient presented to the hospital with chest pain, shortness of didi th. The patient was found to have [id number] myocardial infarction. The patient is to have ca rdiac catheterization and blood pressure today is well controlled. Review of Systems: Denies fever or chills. Physical Examination: Lungs: Diminished breath sounds at bases. Heart: S1, S2. Abdomen: Soft, benign. Extremities: Minimal edema. Impression And Plan: 1.Acute on chronic kidney injury secondary to cardiorenal syndrome and rhabdomyolysis. The patient has underlying chronic kidney disease stage 3A. Renal function is gradually improving. 2.The patient is scheduled to have cardiac catheterization. IV fluids will be started premedication to prevent contrast-induced nephropathy. Recommend to start Mucomyst. 3.Rhabdomyolysis, resolved. Continue to monitor phosphorus and CK level. 4.Hypertension, controlled. Continue current medication. ANA/OSCAR Voice ID: [id number] Report ID: [id number]
[2020-12-28] MEDS: MORPHINE 4 MG/ML SYR IV PRN ×4 (01:26→13:10)
[2020-12-28 03:57] LABS: Absolute Lymphocytes (CBC) 0.3 K/uL (0.7-4.9); Hematocrit 41.2 % (39.6-49.0); Lymphocytes % 3.7 % (15.3-44.8); MPV 9.9 fL (7.6-11.3); RBC Red Blood Cell Count 4.78 M/uL (4.33-5.43)
[2020-12-28 04:06] LABS: Protime INR 1.28
[2020-12-28 04:21] LABS: Bilirubin Total 0.6 mg/dL (0.2-1.0); Magnesium 2.3 mg/dL (1.8-2.4); Protein, Total 6.9 g/dL (6.4-8.2)
[2020-12-28 04:32] LABS: Potassium 5.6 mmol/L (3.5-5.1)
[2020-12-28] MEDS ORDERED: SOD POLYSTYREN SUL 15 GM/60 ML UCUP PO ONE (04:45)
[2020-12-28 08:04] VITALS: TEMP 97
[2020-12-28] MEDS: PANTOPRAZOLE 40MG TABLET PO SCH (08:36)
[2020-12-28] MEDS: GUAIFENESIN 600 MG SA TAB PO SCH (08:36)
[2020-12-28] MEDS: AMIODARONE HCL 200 MG TAB PO SCH (08:36)
[2020-12-28] MEDS: DILTIAZEM HCL 180 MG SR CAP PO SCH (08:36)
[2020-12-28] MEDS: CLOPIDOGREL 75 MG TABLET PO SCH (08:36)
[2020-12-28] MEDS: INSULIN GLARGINE 100 UNITS/ML SQ SCH (08:37)
[2020-12-28] MEDS: INSULIN -REGULAR HUMAN 50 UNIT/0.5 ML ML SQ SCH ×2 (08:38→12:27)
[2020-12-28] MEDS: INSULIN LISPRO 100 UNIT/1 ML SQ SCH ×2 (08:38→12:27)
[2020-12-28] MEDS: DULERA 100/5 (MOMETASONE/FORMOTEROL) INHALER IH SCH (08:39)
[2020-12-28] MEDS: Levofloxacin500mg IV 500 MG/100 ML BAG IV SCH (08:39)
[2020-12-28] MEDS: MOXIFLOXACIN HCL 0.5% 3ML OPTH OPTH SCH (08:41)
[2020-12-28] MEDS ORDERED: ALBUTEROL 2.5 MG/3 ML NEB SOL NEB ONE (09:37)
[2020-12-28] MEDS ORDERED: GLUCAGON 1 MG/VIAL IM PRN (09:37)
[2020-12-28] MEDS ORDERED: INSULIN -REGULAR HUMAN 50 UNIT/0.5 ML ML IV ONE (09:37)
[2020-12-28] MEDS ORDERED: D50W 25 GM/50 ML SYRINGE IV PRN (09:37)
[2020-12-28] MEDS ORDERED: D50W 25 GM/50 ML SYRINGE IV ONE (09:37)
[2020-12-28] MEDS ORDERED: FUROSEMIDE 40 MG/4 ML VIAL IV ONE (10:02)
[2020-12-28 11:17] VITALS: BP 111/58
--- NOTE | 2020-12-28 11:42 | PN ---
Date of Progress Note: 12/28/2020 Subjective: The patient was admitted with acute kidney injury, non-ST elevation [place]. The patient underwent cardiac cath today. Has rise in his creatinine with hyperkalemia. Physical Examination: Vital Signs: Blood pressure 132/79, pulse of 71, afebrile. The patient had good urine output of 4300, negative of 1 L. Chest: Clear to auscultation. Heart: S1, S2. Regular. Systolic murmur. Abdomen: Soft, nontender. Extremities: No edema. Neuro: Alert. No focality. Laboratory Data: WBC 9, H and H 13.6/41.2. Sodium 136, potassium 5.6, bicarb 25, BUN 35, creatinine 1.6, GFR 43, calcium of 8. Current Medications: The patient on include Levaquin, Plavix, Lovenox, amiodarone, diltiazem, nitroglycerin, Lasix, eye drops, pantoprazole. Assessment And Plan: 1. Acute kidney injury, possible secondary to contrast-induced nephropathy. I had long discussion with the patient for the need to stay in the hospital for another 24 hours. Apparently, the patient had his mother 91-year-old at home and he want to take care of her. He has been away for almost a week. I explained the patient risks, benefits and alternatives including cardiac arrest because of hyperkalemia. The patient still insists to be discharged. I am going to go ahead and treat the hyperkalemia. The patient verbalized understanding and agreed to repeat lab test tomorrow to evaluate. We will monitor closely. 2. Hyperkalemia. We will give albuterol, D50, and insulin and we will follow up as above. 3. Hypertension, controlled, optimal. Keep holding any NATI inhibitor. 4. Non-ST elevation myocardial infarction as by primary. 5. Diabetes as by primary. Time spent discussing with the patient, examining the patient, [id number] withthe patient, placing orders, discussing the case with our crab steamer including nursing, discussing the case with the other subspecialty including Cardiology and hospitalist 35 minutes. BRIDGET Voice ID: [id number] Report ID: [id number] KAIA
[2020-12-28 12:32] VITALS: O2SAT 100
--- NOTE | 2020-12-28 14:35 | P.DS ---
Admission Date: 12/22/20 Discharge Date: 12/28/20 Primary Care Provider: LOC Disposition: ROUTINE DISCHARGE Discharge Condition: FAIR Reason for Admission: COPD exacerbation, JACI - Problems (1) COPD exacerbation Current Visit: Yes Status: Acute (2) Unstable angina Current Visit: Yes Status: Acute (3) Positive cardiac stress test Current Visit: Yes Status: Acute (4) Acute renal failure Onset Date: 10/20/15 Current Visit: No Status: Acute Qualifiers: Acute renal failure type: with acute tubular necrosis Qualified Code(s): N17.0 - Acute kidney failure with tubular necrosis (5) Hyperkalemia Onset Date: 10/20/15 Current Visit: No Status: Acute (6) Bacterial conjunctivitis Current Visit: Yes Status: Acute (7) Chronic atrial fibrillation Current Visit: Yes Status: Acute (8) H/O aortic valve replacement Current Visit: Yes Status: Acute Brief History of Present Illness: 60-year-old gentleman with a history of coronary artery disease, peripheral vascular disease, chronic atrial fibrillation, aortic valve replacement on Coumadin anticoagulation presented to the emergency department with a complaint of shortness of breath bilateral hip pain. Workup in the emergency department with chest x-ray showed mild vascular congestion. Initial troponin negative. Patient diagnosed with COPD exacerbation and bacterial conjunctivitis. He was started on moxifloxacin eyedrops, given bronchodilator treatments and admitted for further management. Hospital Course: acute on chronic COPD exacerbation JACI/renal insufficiency on CKD2 Unstable Angina, +stress test Bilateral conjunctivitis Diabetes mellitus type 2, insulin dependent Atrial fibrillation/aortic valve replacement-porcine on chronic anticoagulation therapy with Coumadin Hypertension, hyperlipidemia, PAD, CAD status post CABG Patient admitted to the medical floor and treated for COPD exacerbation with a short course of steroids, scheduled albuterol and ipratropium. He tolerated room air with good oxygen saturation. Patient noted to have renal insufficiency. He developed recurrent chest pain during the hospital stay. Cardiology was consulted patient underwent nuclear stress test which reported stress-induced ischemia in the left ventricular lateral wall. Cardiology recommended cardiac catheterization. Nephrology was consulted to manage his renal insufficiency prior to IV contrast use during cardiac catheterization. His Coumadin was held until panel was less than 1.5. Cardiac catheterization was performed. Patient noted to have multivessel disease with 80% occlusion of the LAD. Cardiology recommended medical management. His renal function was stable after cardiac catheterization. Developed hyperkalemia which was managed with Kayexalate, sodium bicarb, Lasix and IV insulin. His potassium level normalized after these measures. Patient would not stay another day for monitoring and stated he needs to go home to take care of his mom. Nephrology-Dr. Hartley recommend repeat renal panel tomorrow and within 2 weeks which is prescribed. His Coumadin is resumed on discharge. Patient follows with [facility] for PT INR check. He states he has several doses of lovenox from [place] at home he would be able to use to bridge back on to coumadin. Vital Signs/Physical Exam: Temp Pulse Resp BP Pulse Ox 97.0 F 75 16 111/58 L 100 12/28/20 12:00 12/28/20 12:00 12/28/20 13:10 12/28/20 12:00 12/28/20 13:10 General: Alert, In no apparent distress, Oriented x3 HEENT: Mucous membr. moist/pink Neck: Supple, JVD not distended Respiratory: Clear to auscultation bilaterally, Normal air movement Cardiovascular: Regular rate/rhythm, Normal S1 S2, Edema (Mild bilateral lower extremity edema.) Gastrointestinal: Normal bowel sounds, Soft and benign, Non-distended, No tenderness Musculoskeletal: No swelling Integumentary: No rashes Neurological: Normal strength at 5/5 x4 extr Laboratory Data at Discharge: WBC 9.00 K/uL (4.3-10.9) D 12/28/20 03:29 Hgb 13.6 g/dL (13.6-17.9) 12/28/20 03:29 Hct 41.2 % (39.6-49.0) 12/28/20 03:29 Plt Count 118 K/uL (152-406) L 12/28/20 03:29 PT 14.7 SECONDS (9.5-12.5) H 12/28/20 03:29 INR 1.28 12/28/20 03:29 Sodium 136 mmol/L (136-145) 12/28/20 03:29 Potassium 4.1 mmol/L (3.5-5.1) 12/28/20 13:33 BUN 35 mg/dL (7-18) H 12/28/20 03:29 Creatinine 1.64 mg/dL (0.55-1.3) H 12/28/20 03:29 Glucose 310 mg/dL (74-106) H 12/28/20 03:29 Uric Acid 5.6 mg/dL (3.5-7.2) 12/22/20 08:43 Phosphorus 3.5 mg/dL (2.5-4.9) 12/27/20 05:49 Magnesium 2.3 mg/dL (1.8-2.4) 12/28/20 03:29 Total Bilirubin 0.6 mg/dL (0.2-1.0) 12/28/20 03:29 AST 78 U/L (15-37) H 12/28/20 03:29 ALT 57 U/L (12-78) 12/28/20 03:29 Alkaline Phosphatase 89 U/L (45-117) 12/28/20 03:29 Troponin I < 0.02 ng/mL (0.0-0.045) 12/24/20 03:08 Triglycerides 139 mg/dL (<150) 12/23/20 03:00 Cholesterol 174 mg/dL (<200) 12/23/20 03:00 HDL Cholesterol 41 mg/dL (40-60) 12/23/20 03:00 Cholesterol/HDL Ratio 4.24 12/23/20 03:00 Home Medications: Atorvastatin Calcium 40 mg PO BEDTIME 10/21/15 Insulin Aspart [Novolog] 20 unit SQ TIDWM 10/21/15 Warfarin Sodium [Coumadin*] 5 mg PO SEECOM 10/21/15 Acetaminophen [Tylenol Extra Strength] 1 tab PO Q6H PRN 12/22/20 Albuterol Inhaler [Ventolin Inhaler*] 2 puff IH Q8H PRN 12/22/20 Amiodarone HCl [Cordarone*] 1 tab PO BID 12/22/20 Budesonide/Formoterol Fumarate [Symbicort 160-4.5 Mcg Inhaler] 2 puff IH BID 12/22/20 Clopidogrel Bisulfate [Plavix] 1 tab PO DAILY 12/22/20 Diltiazem HCl [Diltiazem ER] 1 tab PO DAILY 12/22/20 Docusate [Colace Cap*] 1 cap PO BID PRN 12/22/20 Empagliflozin [Jardiance] 12.5 mg PO DAILY 12/22/20 Insulin Glargine,Hum.rec.anlog [Lantus] 15 unit SQ BID 12/22/20 Mupirocin Oint [Bactroban 2% Ointment*] 1 jorge a TOP SEECOM PRN 12/22/20 Nitroglycerin 1 tab SL SEECOM PRN 12/22/20 Omeprazole 1 tab PO DAILY 12/22/20 Warfarin Sodium [Coumadin*] 10 mg PO SEECOM 12/22/20 Moxifloxacin HCl [Vigamox 0.5%*] 1 drops OPTH BID 2 Days btl 12/28/20 New Medications: Moxifloxacin HCl [Vigamox 0.5%*] 1 drops OPTH BID 2 Days btl Diet: ADA Activity: Ad shree Followup: Wilda Hartley MD [ACTIVE - CAN ADMIT] - 1-2 Weeks Unknown,U [Primary Care Provider] - Time spent managing pt's care (in minutes): 42
== END 2020-12-28 15:10 | disposition home or self-care (01) | DRG 190 ==
LOC: ER 01:45 → 4TH 05:23
PROVIDERS: ADMIT Hospitalist; ATTEND Internal Medicine
PROC: 4A023N7 Measurement of Cardiac Sampling and Pressure, Left Heart, Percutaneous Approach (ICD-10-PCS; principal; 2020-12-27)
PROC: B2111ZZ Fluoroscopy of Multiple Coronary Arteries using Low Osmolar Contrast (ICD-10-PCS; 2020-12-27)
PROC: B21F1ZZ Fluoroscopy of Other Bypass Graft using Low Osmolar Contrast (ICD-10-PCS; 2020-12-27)
DX: J44.1 Chronic obstructive pulmonary disease with (acute) exacerbation (principal); N17.0 Acute kidney failure with tubular necrosis; I21.4 Non-ST elevation (NSTEMI) myocardial infarction; I25.110 Atherosclerotic heart disease of native coronary artery with unstable angina pectoris; M62.82 Rhabdomyolysis; I48.20 Chronic atrial fibrillation, unspecified; Z88.8 Allergy status to other drugs, medicaments and biological substances; Z79.4 Long term (current) use of insulin; Z79.01 Long term (current) use of anticoagulants; Z79.899 Other long term (current) drug therapy; E11.40 Type 2 diabetes mellitus with diabetic neuropathy, unspecified; G89.29 Other chronic pain; M54.9 Dorsalgia, unspecified; E11.51 Type 2 diabetes mellitus with diabetic peripheral angiopathy without gangrene; Z95.5 Presence of coronary angioplasty implant and graft; Z95.1 Presence of aortocoronary bypass graft; Z95.2 Presence of prosthetic heart valve; Z87.891 Personal history of nicotine dependence; Z20.822 Contact with and (suspected) exposure to COVID-19; E78.5 Hyperlipidemia, unspecified; Z91.041 Radiographic dye allergy status; Z79.02 Long term (current) use of antithrombotics/antiplatelets; H10.9 Unspecified conjunctivitis; I12.9 Hypertensive chronic kidney disease with stage 1 through stage 4 chronic kidney disease, or unspecified chronic kidney disease; N18.31 Chronic kidney disease, stage 3a; E11.22 Type 2 diabetes mellitus with diabetic chronic kidney disease; Z68.36 Body mass index [BMI] 36.0-36.9, adult; E66.9 Obesity, unspecified; E87.5 Hyperkalemia
CPT/HCPCS: 0240U; 36415; 71045; 76770; 78452; 80048; 80053; 80061; 80069; 81003; 81015; 82010; 82550; 82570; 82652; 82947; 83036; 83735; 83880; 83935; 83970; 84132; 84145; 84156; 84300; 84439; 84443; 84484; 84550; 85025; 85610; 86335; 87040; 87086; 87088; 93005; 93017; 93306; 93455; 94640; 96365; 96375; 99285; A9500; C1760; C1893; J1200; J1644; J1650; J1815; J1940; J2250; J2270; J2785; J2920; J2930; J3010; J7030; J7512; J7606

== ENCOUNTER 2021-02-03 13:00 | Inpatient (IN) | payer OTHER ==
--- OUTSIDE RECORDS SUMMARY | 2021-02-03 13:04 | XMS REPORT | Continuity of Care Document ---
:1960 Author Organization [facility] t Address [address] [place] [address] Care Team Providers Name Role Phone Nisha [...] peanut FA Active U 2020-0 [facility] [place] 00:00: [address] iodine DA Active U 2020-0 [facility] [place] 00:00: [address] Medications This patient has no known medications. Procedures This patient has no known procedures. Encounters Start End Encounter Admission Attending Care Care Encounter Source Date/Time Date/Time Type Type Clinicians Facility Department ID 2020-01-13 2020-01-13 [facility] Connie Singh [id number] 09:36:00 23:59:00 Encounter [facility] Lab [id number] Results Test Description Test Time Test Comments Results Result Comments Source GLUCOSE BEDSIDE TESTING 2020-01-27 20:48:00 Test Item Value Reference Range Interpretation Comme nts GLUCOSE BEDSIDE TESTING (test code = GLUBED) 178 MG/DL 70-119 H GLUCOSE BEDSIDE [id number] 17:18:00 Test Item Value Reference Range Interpretation Comments GLUCOSE BEDSIDE TESTING (test code 147 MG/DL 70-119 H = GLUBED) GLUCOSE BEDSIDE [id number] 12:13:00 Test Item Value Reference Range Interpretation Comments GLUCOSE BEDSIDE TESTING (test code 179 MG/DL 70-119 H = GLUBED) BASIC METABOLIC [id number] 11:50:00 Test Item Value Reference Range Interpretation [...] code = LIPINDEX) Index/DL AB HEPATITIS B [id number] 10:31:00 Test Item Value Reference Range Interpretation [...] [employer]. AG HEPATITIS B [id number] 10:31:00 Test Item Value Reference Range Interpretation Comments AG HEPATITIS B SURFACE NEG-NONREAC SCREEN Nonreactive (test code = HBSAG) GLUCOSE BEDSIDE [id number] 05:58:00 Test Item Value Reference Range Interpretation Comments GLUCOSE BEDSIDE TESTING (test code 145 MG/DL 70-119 H = GLUBED) GLUCOSE BEDSIDE [id number] 21:07:00 Test Item Value Reference Range Interpretation Comments GLUCOSE BEDSIDE TESTING (test code 166 MG/DL 70-119 H = GLUBED) GLUCOSE BEDSIDE [id number] 16:08:00 Test Item Value Reference Range Interpretation Comments GLUCOSE BEDSIDE TESTING (test code 152 MG/DL 70-119 H = GLUBED) GLUCOSE BEDSIDE [id number] 11:47:00 Test Item Value Reference Range Interpretation Comments GLUCOSE BEDSIDE TESTING (test code 148 MG/DL 70-119 H = GLUBED) PROTHROMBIN [id number] 06:58:00 Test Item Value Reference Range Interpretation [...] ANTICOAGULANT THERAPY [Y,N]: YESANTICOAGULANT [H,C]: COUMADINGLUCOSE BEDSIDE [id number] 06:40:00 Test Item Value Reference Range Interpretation Comments GLUCOSE BEDSIDE TESTING (test code 158 MG/DL 70-119 H = GLUBED) GLUCOSE BEDSIDE [id number] 20:45:00 Test Item Value Reference Range Interpretation Comments GLUCOSE BEDSIDE TESTING (test code 137 MG/DL 70-119 H = GLUBED) GLUCOSE BEDSIDE [id number] 16:44:00 Test Item Value Reference Range Interpretation Comments GLUCOSE BEDSIDE TESTING (test code 131 MG/DL 70-119 H = GLUBED) PROTHROMBIN [id number] 15:12:00 Test Item Value Reference Range Interpretation Comments PT PATIENT (test code 15.7 SECONDS 9.4-12.5 H = PTP) INTERNATIONAL NORMAL 1.36 INR Unit 0.88-1.13 H ------ RATIO (test code = --------- INR) ---- --Therapeutic r cohlo for INR is dependent upon the situation.2.0-3 .0 Prophylaxis / venous thromboembolism , Treatment of DVT, Acute myocardial infarction stro ke prevention, Systemic emboli sm prevention in fibrillation3.0 -4.5 AMI recurrence prevention, Systemic emboli sm prevention in prosthetic hear t 3.0-5.4 AMI mortality reduc tion BASIC METABOLIC [id number] 15:09:00 Test Item Value Reference Range Interpretation [...] 1 NORMAL = LIPINDEX) Index/DL BASIC METABOLIC [id number] 15:09:00 Test Item Value Reference Range Interpretation [...] NORMAL code = LIPINDEX) Index/DL GLUCOSE BEDSIDE [id number] 12:15:00 Test Item Value Reference Range Interpretation Comments GLUCOSE BEDSIDE TESTING (test code 138 MG/DL 70-119 H = GLUBED) PT AND [id number] 10:30:00 Test Item Value Reference Interpretation Comments [...] prevention in p rosthetic heart 3.0-5.4 A [place] mortality reduc tion THROMBOPLASTIN TIME 102.2 24-37.7 [...] [address] COMPREHENSIVE METABOLIC [id number] 07:09:00 Test Item Value Reference Range Interpretation [...] 1 NORMAL code = LIPINDEX) MG Index/DL [id number] 07:09:00 Test Item Value Reference Range Interpretation [...] changes in trop onin levelscharacter istic of [place]. COMPREHENSIVE METABOLIC [id number] 06:51:00 Test Item Value Reference Range Interpretation [...] <50 MG 1 NORMAL = LIPINDEX) Index/DL [id number] 06:51:00 Test Item Value Reference Range Interpretation Comments TROPONIN-I (test code = TROPI) NG/ML 0.000-0.045 GLYCOSYLATED HEMOGLOBIN (HA1C)2020-01-25 06:50:00 Test Item Value Reference Range Interpretation Comments GLYCOSYLATED HEMOGLOBIN (HA1C) 5.5 % A1C 4.2-6.3 N (test code = GLYHGB) CBC W/AUTO [id number] 05:54:00 Test Item Value Reference Range Interpretation [...] 0.00 K/mm3 0.00-0.05 N NRBC#) GLUCOSE BEDSIDE [id number] 05:24:00 Test Item Value Reference Range Interpretation Comments GLUCOSE BEDSIDE TESTING (test code 120 MG/DL 70-119 H = GLUBED) PT AND [id number] 23:09:00 Test Item Value Reference Interpretation Comments [...] prevention in p rosthetic heart 3.0-5.4 A [place] mortality reduc tion THROMBOPLASTIN TIME 72.8 SECONDS 24-37.7 H THERAPEU TIC RANGE FOR PARTIAL (test code UNFRACTIO NATED HEPARIN = = PTT) 50.5-83.6 SEC T his test is not recommen ded to monitor low molecularweight heparin or danaparoid. Order LMWH test COLLECTION THROUGH LINES THAT HAVE BEEN PREVIOUSLY FLUS HEDWITH HEPARIN SHOULD BE AVOIDED DUE TO POSSIBLE HEPARINCONTAMIN ATION Coronavirus 2018 [facility] [id number] 22:41:00 Test Item Value Reference Range Interpretation Comments Coronavirus 2018 [facility] Bedside (test Negative Neg code = COVNONPUIBED) - XR CHEST 1 [id number] 21:00:00 FAX: Federico Phillip MD [phone] [place]: [address] St: REG Patient Name: MARIANA ANTONY Unit No: [id number] EXAMS: CPT CODE: [id number] XR CHEST 1 V [id number] EXAM: - XR CHEST 1 V LOCATION: [...] 01/24/2020 (2102) HAILEY Baumann NAME: MARIANA ANTONY [address] PHYS: ANTHONYRITA. Federico Phillip MD, [place] [address] : 1960 AGE: 59 SEX: M LOC: [facility] PHONE #: [phone] EXAM DATE: 01/24/2020 STATUS: REG ER FAX #: [phone] RAD NO: DC Dt: PAGE 1 Signed ReportBASIC METABOLIC [id number] 20:54:00 Test Item Value Reference Range Interpretation [...] NORMAL code = LIPINDEX) Index/DL TROPONIN I [id number] 20:47:00 Test Item Value Reference Range Interpretation [...] change s in troponin levelscharacter istic of [place]. CBC W/O [id number] 20:44:00 Test Item Value Reference Range Interpretation [...] 10.6 fL 7.6-10.4 H MPV) Comprehensive Metabolic [id number] 00:41:00 Test Item Value Reference Range Interpretation [...] by th e MDRD study and jayden d be interpretedwith caution.eGFR Re sult Interpretation: eGFR > or = 60 is in t he Normal RangeeGF R < 60 may mean kidney diseaseeGFR < 1 5 may mean kidney failureRange s recommended by the National Kidney Foundation,http ://nkd ep.nih.gov Troponin [id number] 00:41:00 Test Item Value Reference Range Interpretation Comments Troponin T (test code = CAMILLE) <0.010 ng/mL 0.000-0.090 N CK [id number] 00:41:00 Test Item Value Reference Range Interpretation Comments CK (test code = CK) 146 U/L 39-308 N CK [id number] 00:41:00 Test Item Value Reference Range Interpretation Comments CK (test code = CK) 146 U/L 39-308 N CKMB (test code = CKMB) 1.8 ng/mL 0.0-4.9 N CKMB% (test code = CKMBP) 1.2 % 0.0-3.4 N Prothrombin [id number] 00:15:00 Test Item Value Reference Range Interpretation Comments PT (test code = PT) 11.60 seconds 9.78-13.35 N INR (test code = INR) 1.02 Ratio 0.6-1.2 N Partial Thromboplastin [id number] 00:15:00 Test Item Value Reference Range Interpretation Comments aPTT (test code = PTT) 38.00 seconds 24.39-37.25 H CBC with [id number] 00:01:00 Test Item Value Reference Range Interpretation [...] code = ALYMPH) 1.0 K/cumm 0.5-4.6 N Holmes Abs (test code = AMONO) 0.5 K/cumm 0.0-1.2 N Eos Abs (test code = AEOS) 0.06 K/cumm 0.00-0.74 N Baso Abs (test code = ABASO) 0.0 K/cumm 0.00-0.21 N
[2021-02-03 13:44] LABS: Absolute Lymphocytes (CBC) 0.4 K/uL (0.7-4.9); Basophils % 0.5 % (0-1.3); Hematocrit 43.6 % (39.6-49.0); Lymphocytes % 8.2 % (15.3-44.8); MPV 9.6 fL (7.6-11.3); RBC Red Blood Cell Count 5.06 M/uL (4.33-5.43)
[2021-02-03] MEDS ORDERED: MORPHINE 4 MG/ML SYR ONE (13:52)
[2021-02-03] MEDS ORDERED: ONDANSETRON 4 MG/2 ML VIAL ONE (13:52)
[2021-02-03 13:58] LABS: Protime INR 1.1
[2021-02-03 14:01] LABS: ALT/SGPT 27 U/L (12-78); AST/SGOT 32 U/L (15-37); Albumin 3.8 g/dL (3.4-5.0); Alkaline Phosphatase 113 U/L (45-117); BUN Blood Urea Nitrogen 27 mg/dL (7-18); Bicarbonate 26 mmol/L (21-32); Bilirubin Direct 0.2 mg/dL (0-0.2); Bilirubin Total 0.6 mg/dL (0.2-1.0); Glucose Level 184 mg/dL (74-106); Magnesium 2.2 mg/dL (1.8-2.4); NT PRO-BNP 185 pg/mL (<125); Protein, Total 8.1 g/dL (6.4-8.2); Sodium Level 136 mmol/L (136-145); Troponin (Emerg Dept Use Only) < 0.02 ng/mL (0.0-0.045)
--- NOTE | 2021-02-03 14:26 | RAD REPORT ---
EXAM DESCRIPTION: [place] Single View02/03/2021 2:16 pm CLINICAL HISTORY: Chest pain COMPARISON: December 2020 FINDINGS: The lungs appear clear of acute infiltrate. Upper lobe vessels are prominent indicative o f pulmonary venous hypertension. The heart is normal size
--- NOTE | 2021-02-03 15:31 | EDPHYS ---
Physician Documentation [facility] Name: Reji Swift Age: 60 yrs Sex: Male : 1960 Arrival Date: 02/03/2021 Time: 13:04 Bed 5 Private MD: ED Physician Lv Orona HPI: 02/03 18:37 This 60 yrs old Male presents to ER via EMS with complaints of Chest Pain. kdr 18:37 The patient or guardian reports chest pain that is located primarily in the anterior kdr chest wall, left. Onset: suddenly, just prior to arrival, 1 hour(s) ago. The pain does not radiate. Associated signs and symptoms: Pertinent positives: dizziness, lightheadedness, nausea, shortness of breath. The chest pain is described as aching, burning, sharp. Duration: The patient or guardian reports a single episode, that is still ongoing. Severity of pain: At its worst the pain was severe incapacitating just prior to arrival, in the emergency department the pain has improved moderately. The patient has experienced similar episodes in the past, multiple times, chronically, but today's symptoms are worse. Historical: - Allergies: 13:08 Iodine; iw - Home Meds: 13:29 lisinopril 20 mg Oral tab 1 tab once daily [Active]; clopidogrel 75 mg oral tab 1 tab ld1 once daily [Active]; docusate sodium 100 mg Oral cap 1 cap 2 times per day [Active]; amiodarone 200 mg Oral tab 1 tab 2 times per day [Active]; gabapentin 300 mg oral cap 1 cap [Active]; warfarin 2.5 mg Oral tab [Active]; diltiazem HCl 180 mg Oral cpER 1 cap once daily [Active]; budesonide oral [Active]; Novolog Sub-Q [Active]; empagliflozin oral oral [Active]; omeprazole 20 mg Oral cpDR 1 cap once daily [Active]; nitroglycerin 0.4 mg SL subl 1 tab every 5 minutes [Active]; atorvastatin 80 mg oral tab [Active]; - PSHx: 13:08 heart bypass; heart valve replacement; iw - Immunization history:: Adult Immunizations Client reports receiving the 2nd dose of the Covid vaccine. - Social history:: Smoking status: Patient reports the use of cigarette tobacco products, denies chronic smoking, but will smoke occasionally. ROS: 18:37 Constitutional: Negative for fever, chills, and weight loss, Eyes: Negative for injury, kdr pain, redness, and discharge, ENT: Negative for injury, pain, and discharge, Neck: Negative for injury, pain, and swelling, Respiratory: Negative for shortness of breath, cough, wheezing, and pleuritic chest pain, Abdomen/GI: Negative for abdominal pain, nausea, vomiting, diarrhea, and constipation, Back: Negative for injury and pain, : Negative for injury, bleeding, discharge, and swelling, MS/Extremity: Negative for injury and deformity, Skin: Negative for injury, rash, and discoloration, Neuro: Negative for headache, weakness, numbness, tingling, and seizure activity. Psych: Negative for depression, anxiety, suicide ideation, homicidal ideation, and hallucinations, Allergy/Immunology: Negative for hives, rash, and allergies, Endocrine: Negative for neck swelling, polydipsia, polyuria, polyphagia, and marked weight changes, Hematologic/Lymphatic: Negative for swollen nodes, abnormal bleeding, and unusual bruising. 18:37 Cardiovascular: Positive for chest pain, Negative for edema, orthopnea, palpitations, paroxysmal nocturnal dyspnea. Exam: 18:37 Constitutional: This is a well developed, well nourished patient who is awake, alert, kdr and in moderate distress. Head/Face: Normocephalic, atraumatic. Eyes: Pupils equal round and reactive to light, extra-ocular motions intact. Lids and lashes normal. Conjunctiva and sclera are non-icteric and not injected. Cornea within normal limits. Periorbital areas with no swelling, redness, or edema. Neck: Trachea midline, no thyromegaly or masses palpated, and no cervical lymphadenopathy. Supple, full range of motion without nuchal rigidity, or vertebral point tenderness. No Meningismus. Chest/axilla: Normal chest wall appearance and motion. Nontender with no deformity. No lesions are appreciated. Cardiovascular: Regular rate and rhythm with a normal S1 and S2. No gallops, murmurs, or rubs. Normal PMI, no JVD. No pulse deficits. Respiratory: Lungs have equal breath sounds bilaterally, clear to auscultation and percussion. No rales, rhonchi or wheezes noted. No increased work of breathing, no retractions or nasal flaring. Abdomen/GI: Soft, non-tender, with normal bowel sounds. No distension or tympany. No guarding or rebound. No evidence of tenderness throughout. Back: No spinal tenderness. No costovertebral tenderness. Full range of motion. Skin: Warm, dry with normal turgor. Normal color with no rashes, no lesions, and no evidence of cellulitis. MS/ Extremity: Pulses equal, no cyanosis. Neurovascular intact. Full, normal range of motion. Neuro: Awake and alert, GCS 15, oriented to person, place, time, and situation. Cranial nerves II-XII grossly intact. Motor strength 5/5 in all extremities. Sensory grossly intact. Cerebellar exam normal. Normal gait. Psych: Awake, alert, with orientation to person, place and time. Behavior, mood, and affect are within normal limits. Vital Signs: 13:04 BP 131 / 83; Pulse 78; Resp 16; Temp 97.7; Pulse Ox 98% on R/A; Weight 132 kg; Height 6 iw ft. 1 in. (185.42 cm); Pain 9/10; 14:30 BP 109 / 78; Pulse 81; Resp 18; Pulse Ox 96% on R/A; ld1 15:45 BP 104 / 70; Pulse 86; Resp 24; Pulse Ox 97% on R/A; ld1 16:30 BP 134 / 114; Pulse 86; Resp 20; Pulse Ox 98% on R/A; ld1 17:31 BP 116 / 68; Pulse 89; Resp 20; Pulse Ox 99% on R/A; ld1 18:25 BP 105 / 70; Pulse 86; Resp 20; Pulse Ox 96% on R/A; Pain 0/10; ld1 19:00 BP 121 / 68; Pulse 86; Resp 19; Pulse Ox 98% ; rr5 20:13 BP 129 / 75; Pulse 80; Resp 16; Pulse Ox 98% ; rr5 13:04 Body Mass Index 38.39 (132.00 kg, 185.42 cm) iw MDM: 15:30 Patient medically screened. kdr 18:37 [place]ONIA Risk Score: 1 - Three or more CAD risk factors, 1- Known CAD, 1 - ASA use in past kdr 7 days, 1 - Recent [<24hrs] Severe Angina. Data reviewed: vital signs, nurses notes, lab test result(s), radiologic studies. Counseling: I had a detailed discussion with the patient and/or guardian regarding: the historical points, exam findings, and any diagnostic results supporting the discharge/admit diagnosis, lab results, radiology results, the need for further work-up and treatment in the hospital. 02/03 13:04 Order name: Basic Metabolic Panel [facility] 02/03 13:04 Order name: CBC with Diff [facility] 02/03 13:04 Order name: Magnesium; Complete Time: 15:08 [facility] 02/03 13:04 Order name: NT PRO-BNP; Complete Time: 15:08 [facility] 02/03 13:04 Order name: PT-INR; Complete Time: 15:08 [facility] 02/03 13:04 Order name: Troponin (emerg Dept Use Only); Complete Time: 15:08 [facility] 02/03 13:04 Order name: XRAY Chest (1 view); Complete Time: 15:08 [facility] 02/03 13:05 Order name: Basic Metabolic Panel; Complete Time: 15:08 [facility] 02/03 13:05 Order name: CBC with Automated Diff; Complete Time: 15:08 [facility] [place] 02/03 13:05 Order name: Liver (Hepatic) Function; Complete Time: 15:08 [facility] [place] 02/03 17:43 Order name: SARS-COV-2 RT PCR [facility] [place] 02/03 13:04 Order name: EKG; Complete Time: 13:05 [facility] 02/03 13:04 Order name: Cardiac monitoring; Complete Time: 13:30 [facility] 02/03 13:04 Order name: EKG - Nurse/Tech; Complete Time: 13:30 [facility] 02/03 13:04 Order name: IV Saline Lock; Complete Time: 13:30 [facility] 02/03 13:04 Order name: Labs collected and sent; Complete Time: 13:30 [facility] 02/03 13:04 Order name: O2 Per Protocol; Complete Time: 13:30 [facility] 02/03 13:04 Order name: O2 Sat Monitoring; Complete Time: 13:30 kdr Administered Medications: 13:36 Drug: morphine 4 mg Route: IVP; Site: left antecubital; 1 02/04 16:27 Follow up: Response: No adverse reaction 1 02/03 13:36 Drug: Zofran (Ondansetron) 4 mg Route: IVP; Site: left antecubital; 02/04 16:27 Follow up: Response: No adverse reaction ld1 Disposition: 02/03/21 15:30 Hospitalization ordered by Adis Cavanaugh for Inpatient Admission. Preliminary diagnosis are Chest pain, unspecified, Acute on chronic renal failure, unstable angina. - Bed requested for Telemetry/MedSurg (Inpatient). - Status is Inpatient Admission. rr5 - Condition is Fair. - Problem is an acute exacerbation. - Symptoms have improved. Signatures: Dispatcher [employer] EDIN Giacomo Lucero Lv Orona MD MD [facility] Malka Daniels RN RN Cristina Aguilar RN RN cg Brett Acosta RN RN rr5 Gloria Cardozo RN RN ld1 Corrections: (The following items were deleted from the chart) 02/03 14:26 13:05 HEPATIC FUNCTION+C.LAB.BRZ ordered. EDIN EDMS 16:39 15:43 CORONAVIRUS+MR.LAB.BRZ ordered. EDIN EDMS 18:29 15:30 Hospitalization Ordered by Adis Cavanaugh DO for Inpatient Admission. Preliminary bd diagnosis is Chest pain, unspecified; Acute on chronic renal failure, unstable angina. Bed requested for Telemetry/MedSurg (Inpatient). Status is Inpatient Admission. Condition is Fair. Problem is an acute exacerbation. Symptoms have improved. kdr 19:55 18:29 02/03/2021 15:30 Hospitalization Ordered by Adis Cavanaugh DO for Inpatient cg Admission. Preliminary diagnosis is Chest pain, unspecified; Acute on chronic renal failure, unstable angina. Bed requested for Telemetry/MedSurg (Inpatient). Status is Inpatient Admission. Condition is Fair. Problem is an acute exacerbation. Symptoms have improved. bd 20:17 19:55 02/03/2021 15:30 Hospitalization Ordered by Adis Cavanaugh DO for Inpatient rr5 Admission. Preliminary diagnosis is Chest pain, unspecified; Acute on chronic renal failure, unstable angina. Bed requested for Telemetry/MedSurg (Inpatient). Status is Inpatient Admission. Condition is Fair. Problem is an acute exacerbation. Symptoms have improved. cg
--- NOTE | 2021-02-03 15:31 | ER ---
Nurse's Notes [facility] Name: Reji Swift Age: 60 yrs Sex: Male : 1960 Arrival Date: 02/03/2021 Time: 13:04 Bed 5 Private MD: Diagnosis: Chest pain, unspecified;Acute on chronic renal failure, unstable angina Presentation: 02/03 13:04 Chief complaint: Patient states: chest pain 10/10 X 1 hour, EMS gave 324 ASA and 1 SL iw nitro, no relief, pt has extensive cardiac hx , sinus rhythm on 12 lead. Coronavirus screen: At this time, the client does not indicate any symptoms associated with coronavirus-19. Ebola Screen: Patient negative for fever greater than or equal to 101.5 degrees Fahrenheit, and additional compatible Ebola Virus Disease symptoms Patient denies exposure to infectious person. Patient denies travel to an Ebola-affected area in the 21 days before illness onset. No symptoms or risks identified at this time. Initial Sepsis Screen: Does the patient meet any 2 criteria? No. Patient's initial sepsis screen is negative. Does the patient have a suspected source of infection? No. Patient's initial sepsis screen is negative. Risk Assessment: Do you want to hurt yourself or someone else? Patient reports no desire to harm self or others. Onset of symptoms was February 03, 2021. 13:04 Method Of Arrival: EMS: [facility] iw 13:04 Acuity: LUIS DANIEL 2 iw Historical: - Allergies: 13:08 Iodine; iw - Home Meds: 13:29 lisinopril 20 mg Oral tab 1 tab once daily [Active]; clopidogrel 75 mg oral tab 1 tab ld1 once daily [Active]; docusate sodium 100 mg Oral cap 1 cap 2 times per day [Active]; amiodarone 200 mg Oral tab 1 tab 2 times per day [Active]; gabapentin 300 mg oral cap 1 cap [Active]; warfarin 2.5 mg Oral tab [Active]; diltiazem HCl 180 mg Oral cpER 1 cap once daily [Active]; budesonide oral [Active]; Novolog Sub-Q [Active]; empagliflozin oral oral [Active]; omeprazole 20 mg Oral cpDR 1 cap once daily [Active]; nitroglycerin 0.4 mg SL subl 1 tab every 5 minutes [Active]; atorvastatin 80 mg oral tab [Active]; - PSHx: 13:08 heart bypass; heart valve replacement; iw - Immunization history:: Adult Immunizations Client reports receiving the 2nd dose of the Covid vaccine. - Social history:: Smoking status: Patient reports the use of cigarette tobacco products, denies chronic smoking, but will smoke occasionally. Screenin:29 Abuse screen: Denies threats or abuse. Denies injuries from another. Nutritional ld1 screening: No deficits noted. Tuberculosis screening: No symptoms or risk factors identified. Fall Risk None identified. Assessment: 13:21 General: Appears in no apparent distress. uncomfortable, Behavior is agitated, anxious. ld1 Pain: Complains of pain in chest Pain does not radiate. Pain currently is 9 out of 10 on a pain scale. Quality of pain is described as heavy, Pain began 1 hour ago. Is continuous. Neuro: Level of Consciousness is awake, alert, obeys commands, Oriented to person, place, time, situation. Cardiovascular: Capillary refill < 3 seconds Patient's skin is warm and dry. Rhythm is sinus rhythm. Respiratory: Airway is patent Respiratory effort is even, unlabored, Respiratory pattern is regular, symmetrical. GI: Abdomen is round non-distended, Bowel sounds present X 4 quads. : No signs and/or symptoms were reported regarding the genitourinary system. EENT: No signs and/or symptoms were reported regarding the EENT system. Derm: No signs and/or symptoms reported regarding the dermatologic system. Musculoskeletal: No signs and/or symptoms reported regarding the musculoskeletal system. 14:30 Reassessment: Patient appears in no apparent distress at this time. No changes from ld1 previously documented assessment. 15:41 Reassessment: Patient appears in no apparent distress at this time. No changes from ld1 previously documented assessment. Patient denies pain at this time. 16:30 Reassessment: Patient appears in no apparent distress at this time. No changes from ld1 previously documented assessment. Patient denies pain at this time. 17:29 Reassessment: Patient appears in no apparent distress at this time. No changes from ld1 previously documented assessment. Patient and/or family updated on plan of care and expected duration. Pain level reassessed. Patient is alert, oriented x 3, equal unlabored respirations, skin warm/dry/pink. Eating dinner with mother at bedside. Denies concerns. 18:25 Reassessment: Patient appears in no apparent distress at this time. Patient is alert, ld1 oriented x 3, equal unlabored respirations, skin warm/dry/pink. 19:30 Reassessment: Patient appears in no apparent distress at this time. Patient is alert, rr5 oriented x 3, equal unlabored respirations, skin warm/dry/pink. no complaints made for transfer to room 402. Vital Signs: 13:04 BP 131 / 83; Pulse 78; Resp 16; Temp 97.7; Pulse Ox 98% on R/A; Weight 132 kg; Height 6 iw ft. 1 in. (185.42 cm); Pain 9/10; 14:30 BP 109 / 78; Pulse 81; Resp 18; Pulse Ox 96% on R/A; ld1 15:45 BP 104 / 70; Pulse 86; Resp 24; Pulse Ox 97% on R/A; ld1 16:30 BP 134 / 114; Pulse 86; Resp 20; Pulse Ox 98% on R/A; ld1 17:31 BP 116 / 68; Pulse 89; Resp 20; Pulse Ox 99% on R/A; ld1 18:25 BP 105 / 70; Pulse 86; Resp 20; Pulse Ox 96% on R/A; Pain 0/10; ld1 19:00 BP 121 / 68; Pulse 86; Resp 19; Pulse Ox 98% ; rr5 20:13 BP 129 / 75; Pulse 80; Resp 16; Pulse Ox 98% ; rr5 13:04 Body Mass Index 38.39 (132.00 kg, 185.42 cm) iw ED Course: 13:04 Patient arrived in ED. iw 13:04 Lv Orona MD is Attending Physician. kdr 13:07 Triage completed. iw 13:09 Arm band placed on. iw 13:20 Initial lab(s) drawn, by me, sent to lab. Inserted saline lock: 20 gauge in left kj1 antecubital area, using aseptic technique. Blood collected. 13:21 Gloria Cardozo, ERASMO is Primary Nurse. ld1 13:29 Patient has correct armband on for positive identification. Placed in gown. Bed in low ld1 position. Call light in reach. Side rails up X2. classroom monitor on. Pulse ox on. NIBP on. 13:29 Patient maintains SpO2 saturation greater than 95% on room air. ld1 14:15 XRAY Chest (1 view) In Process Unspecified. EDMS 14:25 Basic Metabolic Panel Sent. sv 14:25 CBC with Diff Sent. sv 15:25 Adis Cavanaugh DO is Hospitalizing Provider. kdr 20:14 No provider procedures requiring assistance completed. Patient admitted, IV remains in rr5 place. intact, No redness/swelling at site. Administered Medications: 13:36 Drug: morphine 4 mg Route: IVP; Site: left antecubital; ld1 02/04 16:27 Follow up: Response: No adverse reaction ld1 02/03 13:36 Drug: Zofran (Ondansetron) 4 mg Route: IVP; Site: left antecubital; ld1 02/04 16:27 Follow up: Response: No adverse reaction ld1 Outcome: 02/03 15:30 Decision to Hospitalize by Provider. kdr 20:14 Admitted to Tele accompanied by nurse, via stretcher, room 402, with chart, Report rr5 called to karina 20:14 Condition: stable 20:14 Instructed on the need for admit. 20:17 Patient left the ED. rr5 Signatures: Dispatcher [employer] Sagrario Coleman RN RN Lv Orona MD MD kdr Williams, Irene, RN RN iw Roque, Raymond, RN RN rr5 Lydia Springer kj1 Gloria Cardozo, ERASMO RN ld1 Corrections: (The following items were deleted from the chart) 13:09 13:04 Resp 16bpm; Pulse Ox 98% RA; Temp 97.7F; Height 6 ft. 1 in.; Pain 9/10; iw iw 13:10 13:04 BP 131 / 83; Pulse 78bpm; Resp 16bpm; Pulse Ox 98% RA; Temp 97.7F; Height 6 ft. 1 iw in.; Pain 9/10; iw
--- NOTE | 2021-02-03 16:24 | P.HP ---
Certification for Inpatient Patient admitted to: Observation With expected LOS: <2 Midnights Patient will require the following post-hospital care: None Practitioner: I am a practitioner with admitting privileges, knowledge of patient current condition, hospital course, and medical plan of care. Services: Services provided to patient in accordance with Admission requirements found in Title 42 Section 412.3 of the Code of Federal Regulations Patient History Date of Service: 02/03/21 Primary Care Provider: [facility] Reason for admission: Chest pain History of Present Illness: 60-year-old male with history of multiple medical problems including CAD with prior CABG/stent, hypertension, atrial fibrillation on chronic anticoagulant therapy, history of aortic valve replacement, hypertension, hyperlipidemia, diabetes and chronic renal disease. Patient presented to emergency room with chest pain. Patient reports a history of angina. Chest pain mainly to the left side. He denied any significant nausea, vomiting. Patient reports some mild dehydration. Patient recently hospitalized in late November early December for chest pain. Cardiac stress test was abnormal. Patient had subsequent heart catheterization. Patient had significant multivessel disease. Medical management was recommended at that time. The patient came to the ER for further evaluation. In the ER patient was evaluated. Initial cardiac enzymes unremarkable. CBC, BMP reviewed. Patient with GFR of 31. Patient admitted for observation. Allergies Iodinated Contrast Media [Iodinated Contrast Media - IV Dye] Allergy (Verified 10/20/15 08:14) Shortness of breath No Allergy (Uncoded 01/21/16 01:51) Unknown No Known Allergies Allergy (Uncoded 10/13/16 02:36) Unknown Home medications list reviewed: Yes Home Medications: Atorvastatin Calcium 40 mg PO BEDTIME 10/21/15 Insulin Aspart [Novolog] 20 unit SQ TIDWM 10/21/15 Warfarin Sodium [Coumadin*] 5 mg PO SEECOM 10/21/15 Acetaminophen [Tylenol Extra Strength] 1 tab PO Q6H PRN 12/22/20 Albuterol Inhaler [Ventolin Inhaler*] 2 puff IH Q8H PRN 12/22/20 Amiodarone HCl [Cordarone*] 1 tab PO BID 12/22/20 Budesonide/Formoterol Fumarate [Symbicort 160-4.5 Mcg Inhaler] 2 puff IH BID 12/22/20 Clopidogrel Bisulfate [Plavix] 1 tab PO DAILY 12/22/20 Diltiazem HCl [Diltiazem ER] 1 tab PO DAILY 12/22/20 Docusate [Colace Cap*] 1 cap PO BID PRN 12/22/20 Empagliflozin [Jardiance] 12.5 mg PO DAILY 12/22/20 Insulin Glargine,Hum.rec.anlog [Lantus] 15 unit SQ BID 12/22/20 Mupirocin Oint [Bactroban 2% Ointment*] 1 jorge a TOP SEECOM PRN 12/22/20 Nitroglycerin 1 tab SL SEECOM PRN 12/22/20 Omeprazole 1 tab PO DAILY 12/22/20 Warfarin Sodium [Coumadin*] 10 mg PO SEECOM 12/22/20 Moxifloxacin HCl [Vigamox 0.5%*] 1 drops OPTH BID 2 Days btl 12/28/20 - Past Medical/Surgical History Diabetic: Yes -: Atrial fibrillation on chronic anticoagulation therapy-Coumadin -: Aortic valve replacement-porcine -: PAD -: CAD s/p CABG -: COPD -: Diabetes mellitus type 2 -: Hypertension -: Hyperlipidemia -: Diabetic neuropathy -: Tobacco abuse -: Porcine aortic valve replacement -: Arterial leg stenting -: CABG Psychosocial/ Personal History: Patient is retired, lives and cares for his mother - Family History Father -: Cancer Mother -: Cancer Brother -: Diabetes - Social History Smoking Status: Light Tobacco smoker (1-9 cigarettes/day) Counseled patient to stop smoking for: less than 10 minutes Smoking therapy provided: Yes Patient receptive to therapy: Yes Alcohol use: No CD- Drugs: No Caffeine use: Yes Place of Residence: Home Review of Systems General: As per HPI Eyes: Unremarkable ENT: Unremarkable Respiratory: Unremarkable Cardiovascular: Chest Pain, As per HPI Gastrointestinal: Unremarkable Genitourinary: Unremarkable Musculoskeletal: Unremarkable Integumentary: Unremarkable Neurological: Unremarkable Lymphatics: Unremarkable Physical Examination - Studies Laboratory Data (last 24 hrs) 02/03/21 13:20: PT 12.7 H, INR 1.10 02/03/21 13:20: WBC 4.60, Hgb 14.2, Hct 43.6, Plt Count 125 L 02/03/21 13:20: Sodium 136, Potassium 4.0, BUN 27 H, Creatinine 2.16 H, Glucose 184 H, Magnesium 2.2, Total Bilirubin 0.6, AST 32, ALT 27, Alkaline Phosphatase 113 Assessment and Plan - Plan Heart catheterization 01/14: Findings: 1. Left main is normal. 2. LAD; proximal 80% stenosis. 3. Diagonal 1 branch has a patent stent. 4. Left circumflex; small artery. OM 1 branch has 70% proximal disease, but small vessel. 5. RCA; large dominant with a proximal 60%, distal 50%. Grafts: 1. Patent ACEVEDO to diagonal 2 that fills back to the LAD. 2. Patent SVG to RCA, but it is aneurysmal. Conclusion: Coronary artery disease as above. Plan: Medical management. Physical Exam: GENERAL: The patient is a well-developed, well-nourished, in no apparent distress. Alert and oriented x3. VITAL SIGNS: Reviewed HEENT: Head is normocephalic and atraumatic. Extraocular muscles are intact. Pupils are equal, round, and reactive to light and accommodation. Nares appeared normal. Mouth is well hydrated and without lesions. Mucous membranes are moist. NECK: Supple. No carotid bruits. No lymphadenopathy or thyromegaly. LUNGS: Clear to auscultation. No crackles or wheezes are heard. HEART: Regular rate and rhythm, no appreciable gallops, rubs, murmurs or extra heart sounds ABDOMEN: Soft, nontender, and nondistended. Positive bowel sounds. No hepatosplenomegaly was noted. EXTREMITIES: Without any cyanosis, clubbing, rash, lesions or peripheral edema. NEUROLOGIC: The patient is oriented to person, place and time. Strength and sensation are grossly intact. Face is symmetric. SKIN: Normal color, turgor and temperature. No ulcerations or rashes noted. Impression: Chest pain with history of CAD with recent heart catheterization 01/14 showing 80% stenosis of the LAD, diagonal 1 branch with patent stent, left circumflex small artery with 70% stenosis, RCA with large dominant with proximal 60% and distal 50% stenosis Hypertension Diabetes mellitus type 2 insulin-dependent Hyperlipidemia GERD Diabetic neuropathy History of atrial fibrillation and aortic heart valve replacement on chronic anticoagulation therapy PVD with prior stents COPD Tobacco abuse Plan: Chest pain with history of CAD with recent heart catheterization 01/14 showing 80% stenosis of the LAD, diagonal 1 branch with patent stent, left circumflex small artery with 70% stenosis, RCA with large dominant with proximal 60% and distal 50% stenosis: Patient will be admitted for further evaluation and treatment. Monitor telemetry and cardiac enzymes. Will consult cardiology for further recommendation. Anticipate improvement. If cardiac enzymes unremarkable anticipate patient can likely be discharged considering recent he art catheterization. Await further recommendations from cardiology. Will continue with home medications. Hypertension: Continue diltiazem 180 mg daily, lisinopril 20 mg daily. Will monitor and adjust appropriately. Diabetes mellitus type 2 insulin-dependent: Continue with insulin sliding scale. Will continue with Lantus 10 units subcu twice daily. Will review home medication. Hyperlipidemia: Check fasting lipid panel. Continue with Lipitor 80 mg daily GERD: Continue with Protonix. Diabetic neuropathy: Continue gabapentin 300 mg daily History of atrial fibrillation and aortic heart valve replacement on chronic anticoagulation therapy: We will monitor INR. Continue with Coumadin regimen of 2.5 mg 2 pills every Sunday, Sunday and Sunday. Patient also takes 4 pills every Sunday, , Sunday and Sunday. Maintain INR between 2.5 and 3.5. Hold Coumadin if INR greater than 3.5. Patient also takes amiodarone 200 mg 1 pill twice daily. We will continue with medication. PVD with prior stents: Continue with aspirin and Plavix. COPD: We will provide COPD medicationDulera and Atrovent. Patient takes Symbicort at home. Tobacco abuse: Cessation education provided. Patient recently started tobacco use. Cessation addressed in detail. Code Status: Full Code DVT prophylaxis: Lovenox Advanced Care Planning-30 minutes: Plan of care for the patient's discharge was discussed in detail with the patient and family. Discharge Plan: Home Plan to discharge in: 24 Hours - Advance Directives Does patient have a Living Will: No Does patient have a Durable POA for Healthcare: No - Code Status/Comfort Care Code Status Assessed: Yes (Patient is full code) Time Spent Managing Pts Care (In Minutes): 55
[2021-02-03] MEDS: INSULIN -REGULAR HUMAN 50 UNIT/0.5 ML ML SQ SCH ×2 (20:34→21:00)
[2021-02-03] MEDS ORDERED: IPRATROPIUM BROM 0.5MG/2.5ML NEB PRN (20:34)
[2021-02-03] MEDS ORDERED: ONDANSETRON 4 MG/2 ML VIAL IV PRN (20:34)
[2021-02-03] MEDS ORDERED: D50W 25 GM/50 ML SYRINGE IV PRN (20:34)
[2021-02-03] MEDS ORDERED: NITROGLYCERIN 0.4 MG/TAB SL PRN (20:34)
[2021-02-03] MEDS ORDERED: WARFARIN SODIUM 2.5 MG TAB PO SCH (20:34)
[2021-02-03] MEDS ORDERED: ACETAMINOPHEN 500 MG TAB PO PRN (20:34)
[2021-02-03] MEDS ORDERED: GLUCAGON 1 MG/VIAL IM PRN (20:34)
[2021-02-03] MEDS: DULERA 100/5 (MOMETASONE/FORMOTEROL) INHALER IH SCH (21:00)
[2021-02-03] MEDS ORDERED: GABAPENTIN 300 MG CAP PO SCH (21:00)
[2021-02-03] MEDS ORDERED: ATORVASTATIN 80 MG TAB PO SCH (21:00)
[2021-02-03] MEDS: INSULIN GLARGINE 100 UNITS/ML SQ SCH (21:00)
[2021-02-03] MEDS ORDERED: MORPHINE 2 MG/ML SYR IV PRN (21:07)
[2021-02-03] MEDS: AMIODARONE HCL 200 MG TAB PO SCH (21:28)
[2021-02-03] MEDS ORDERED: FENTANYL CITR 100 MCG/2 ML IV ONE (21:57)
[2021-02-03] MEDS ORDERED: WARFARIN SODIUM 5 MG TAB PO SCH (22:00)
[2021-02-03 23:05] LABS: CKMB Creatine Kinase MB 1.1 ng/mL (1.0-3.6); Creatine Phosphokinase 56 U/L (39-308); Troponin I < 0.02 ng/mL (0.0-0.045)
[2021-02-04 00:19] VITALS: BMI 33.2
[2021-02-04] MEDS ORDERED: FENTANYL CITR 100 MCG/2 ML IV PRN (02:24)
[2021-02-04 06:26] LABS: Protime INR 1.09
[2021-02-04] MEDS ORDERED: PANTOPRAZOLE 40MG TABLET PO SCH (06:30)
[2021-02-04 06:42] LABS: BUN Blood Urea Nitrogen 23 mg/dL (7-18); Bicarbonate 24 mmol/L (21-32); CKMB Creatine Kinase MB 1.2 ng/mL (1.0-3.6); Creatine Phosphokinase 51 U/L (39-308); Glucose Level 183 mg/dL (74-106); HDL Cholesterol 28 mg/dL (40-60); LDL Cholesterol, Calculated 151 (<130); Sodium Level 134 mmol/L (136-145); Troponin I < 0.02 ng/mL (0.0-0.045)
[2021-02-04 07:26] VITALS: BP 136/77; TEMP 96.8
[2021-02-04] MEDS: INSULIN -REGULAR HUMAN 50 UNIT/0.5 ML ML SQ SCH (07:30)
--- NOTE | 2021-02-04 07:36 | P.DS ---
Admission Date: 02/04/21 Discharge Date: 02/04/21 Primary Care Provider: [facility] Disposition: ROUTINE DISCHARGE Discharge Condition: GOOD Reason for Admission: Chest pain Consultations: Cardiology-Dr. Currie Procedures: COVID: Negative CXR: COMPARISON: December 2020 FINDINGS: The lungs appear clear of acute infiltrate. Upper lobe vessels are prominent indicative of pulmonary venous hypertension. The heart is normal size Heart catheterization 01/14: Findings: 1. Left main is normal. 2. LAD; proximal 80% stenosis. 3. Diagonal 1 branch has a patent stent. 4. Left circumflex; small artery. OM 1 branch has 70% proximal disease, but small vessel. 5. RCA; large dominant with a proximal 60%, distal 50%. Grafts: 1. Patent ACEVEDO to diagonal 2 that fills back to the LAD. 2. Patent SVG to RCA, but it is aneurysmal. Conclusion: Coronary artery disease as above. Plan: Medical management. Medical Problem List: Chest pain with history of CAD with recent heart catheterization 01/14 showing 80% stenosis of the LAD, diagonal 1 branch with patent stent, left circumflex small artery with 70% stenosis, RCA with large dominant with proximal 60% and distal 50% stenosis Hypertension Diabetes mellitus type 2 insulin-dependent Hyperlipidemia GERD Diabetic neuropathy History of atrial fibrillation and aortic heart valve replacement on chronic anticoagulation therapy PVD with prior stents COPD Tobacco abuse Brief History of Present Illness: 60-year-old male with history of multiple medical problems including CAD with prior CABG/stent, hypertension, atrial fibrillation on chronic anticoagulant therapy, history of aortic valve replacement, hypertension, hyperlipidemia, diabetes and chronic renal disease. Patient presented to emergency room with chest pain. Patient reports a history of angina. Chest pain mainly to the left side. He denied any significant nausea, vomiting. Patient reports some mild dehydration. Patient recently hospitalized in late November early December for chest pain. Cardiac stress test was abnormal. Patient had subsequent heart catheterization. Patient had significant multivessel disease. Medical management was recommended at that time. The patient came to the ER for further evaluation. In the ER patient was evaluated. Initial cardiac enzymes unremarkable. CBC, BMP reviewed. Patient with GFR of 31. Patient admitted for observation. Hospital Course: Patient presented with chest pain. Patient with history of CAD with recent heart catheterization 01/14 showing 80% stenosis of the LAD, diagonal 1 branch with patent stent, left circumflex small artery with 70% stenosis, RCA with large dominant with proximal 60% and distal 50% stenosis. Cardiology recommended medical management at that time. Patient was admitted for observation. Cardiac enzymes unremarkable. Chest pain improved. No need for further cardiac intervention. Overall his condition is improved. Blood sugar, blood pressure well controlled. We will continue with medical management at this time. Patient will continue with his current medications including aspirin 81 mg daily, Plavix 25 mg daily, blood pressure medicationlisinopril 20 mg daily/diltiazem 180 mg daily, amiodarone 200 mg 1 pill twice daily and Coumadin as directed. Recommend to use nitroglycerin as needed for chest pain. Prescription will be provided. Recommend follow-up with cardiology as an outpatient to further monitor and adjust medication. Patient with hypertension. This is well controlled. At discharge patient will continue with diltiazem 180 mg daily, and lisinopril 20 mg daily. Recommend to maintain blood pressure less than 130/80. Further adjustment can be done by his PCP. Patient with diabetes mellitus type 2 insulin-dependent. At discharge patient will continue with his regular insulin regimenLantus 15 units subcu twice daily and NovoLog as directed. Patient also takes Jardiance 12.5 mg 1 pill once daily.. Recommend to maintain blood sugar less than 140 fasting and less than 200 after meals. Recommend to recheck hemoglobin A1c in 3 months to monitor his progress. Recommend follow-up with his PCP to further monitor and adjust medication. Patient with hyperlipidemia. LDL elevated. Will recommend to increase Lipitor to 80 mg. At discharge patient will continue with Lipitor 80 mg daily. Recommend to recheck fasting lipid panel in 4 to 6 weeks to monitor his progress. Patient with diabetic neuropathy. At discharge patient will continue with gabapentin 300 mg daily. Patient with history of atrial fibrillation and aortic valve replacement on chronic anticoagulation therapy. At discharge patient will continue with his current Coumadin regimen. Patient takes Coumadin of 2.5 mg 2 pills every Sunday, Sunday and Sunday. Patient also takes 4 pills every Sunday, , Sunday and Sunday. Maintain INR between 2.5 and 3.5. Recommend to recheck INR in 1 week to monitor his progress. 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 Patient also takes amiodarone 2 mg 1 pill twice daily. Patient will continue with his current medications and follow-up appropriately. Patient with PVD with prior stents. At discharge patient will continue with aspirin 81 mg daily and Plavix 75 mg daily. Patient with COPD and tobacco abuse. At discharge patient will continue with his current medications of Symbicort 2 puffs twice daily and albuterol 2 puffs three times a day as needed for shortness of breath. Tobacco cessation addressed in detail. Patient plans to quit. Patient with GERD. At discharge patient will continue with Prilosec 20 mg daily. Vital Signs/Physical Exam: Temp Pulse Resp BP Pulse Ox 96.8 F 85 20 136/77 95 02/04/21 07:24 02/04/21 07:24 02/04/21 07:24 02/04/21 07:24 02/04/21 07:24 General: Alert, In no apparent distress, Oriented x3, Cooperative HEENT: Atraumatic Neck: Supple Respiratory: Clear to auscultation bilaterally, Normal air movement Cardiovascular: Normal pulses, Regular rate/rhythm Gastrointestinal: Normal bowel sounds, No tenderness, No masses, No rebound, No guarding Musculoskeletal: No erythema, No tenderness, No warmth Integumentary: No tenderness/swelling Neurological: Normal speech, Normal strength at 5/5 x4 extr, Normal tone, Normal affect Laboratory Data at Discharge: WBC 4.60 K/uL (4.3-10.9) 02/03/21 13:20 Hgb 14.2 g/dL (13.6-17.9) 02/03/21 13:20 Hct 43.6 % (39.6-49.0) 02/03/21 13:20 Plt Count 125 K/uL (152-406) L 02/03/21 13:20 PT 12.6 SECONDS (9.5-12.5) H 02/04/21 05:59 INR 1.09 02/04/21 05:59 Sodium 134 mmol/L (136-145) L 02/04/21 05:59 Potassium 4.0 mmol/L (3.5-5.1) 02/04/21 05:59 BUN 23 mg/dL (7-18) H 02/04/21 05:59 Creatinine 1.72 mg/dL (0.55-1.3) H 02/04/21 05:59 Glucose 183 mg/dL (74-106) H 02/04/21 05:59 Magnesium 2.0 mg/dL (1.8-2.4) 02/04/21 05:59 Total Bilirubin 0.6 mg/dL (0.2-1.0) 02/03/21 13:20 AST 32 U/L (15-37) 02/03/21 13:20 ALT 27 U/L (12-78) 02/03/21 13:20 Alkaline Phosphatase 113 U/L (45-117) 02/03/21 13:20 Troponin I < 0.02 ng/mL (0.0-0.045) 02/04/21 05:59 Triglycerides 390 mg/dL (<150) H 02/04/21 05:59 Cholesterol 257 mg/dL (<200) H 02/04/21 05:59 HDL Cholesterol 28 mg/dL (40-60) L 02/04/21 05:59 Cholesterol/HDL Ratio 9.18 02/04/21 05:59 Home Medications: Insulin Aspart [Novolog] 20 unit SQ TIDWM 10/21/15 Warfarin Sodium [Coumadin*] 5 mg PO SEECOM 10/21/15 Albuterol Inhaler [Ventolin Inhaler*] 2 puff IH Q8H PRN 12/22/20 Amiodarone HCl [Cordarone*] 1 tab PO BID 12/22/20 Budesonide/Formoterol Fumarate [Symbicort 160-4.5 Mcg Inhaler] 2 puff IH BID 12/22/20 Clopidogrel Bisulfate [Plavix] 1 tab PO DAILY 12/22/20 Diltiazem HCl [Diltiazem ER] 1 tab PO DAILY 12/22/20 Docusate [Colace Cap*] 1 cap PO BID PRN 12/22/20 Empagliflozin [Jardiance] 12.5 mg PO DAILY 12/22/20 Insulin Glargine,Hum.rec.anlog [Lantus] 15 unit SQ BID 12/22/20 Omeprazole 1 tab PO DAILY 12/22/20 Warfarin Sodium [Coumadin*] 10 mg PO SEECOM 12/22/20 Gabapentin 300 mg PO BEDTIME 02/03/21 Lisinopril [Zestril] 20 mg PO DAILY 02/03/21 Atorvastatin Calcium [Lipitor] 80 mg PO BEDTIME #30 tab 02/04/21 Nitroglycerin 1 tab SL SEECOM PRN #30 02/04/21 New Medications: Atorvastatin Calcium [Lipitor] 80 mg PO BEDTIME #30 tab Nitroglycerin 1 tab SL SEECOM PRN #30 PRN Reason: pain Physician Discharge Instructions: Patient presented with chest pain. Patient with history of CAD with recent heart catheterization 01/14 showing 80% stenosis of the LAD, diagonal 1 branch with patent stent, left circumflex small artery with 70% stenosis, RCA with large dominant with proximal 60% and distal 50% stenosis. Cardiology recommended medical management at that time. Patient was admitted for observation. Cardiac enzymes unremarkable. Chest pain improved. No need for further cardiac intervention. Overall his condition is improved. Blood sugar, blood pressure well controlled. We will continue with medical management at this time. Patient will continue with his current medications including aspirin 81 mg daily, Plavix 25 mg daily, blood pressure medicationlisinopril 20 mg daily/diltiazem 180 mg daily, amiodarone 200 mg 1 pill twice daily and Coumadin as directed. Recommend to use nitroglycerin as needed for chest pain. Presc ription will be provided. Recommend follow-up with cardiology as an outpatient to further monitor and adjust medication. Patient with hypertension. This is well controlled. At discharge patient will continue with diltiazem 180 mg daily, and lisinopril 20 mg daily. Recommend to maintain blood pressure less than 130/80. Further adjustment can be done by his PCP. Patient with diabetes mellitus type 2 insulin-dependent. At discharge patient will continue with his regular insulin regimenLantus 15 units subcu twice daily and NovoLog as directed. Patient also takes Jardiance 12.5 mg 1 pill once daily.. Recommend to maintain blood sugar less than 140 fasting and less than 200 after meals. Recommend to recheck hemoglobin A1c in 3 months to monitor his progress. Recommend follow-up with his PCP to further monitor and adjust medication. Patient with hyperlipidemia. LDL elevated. Will recommend to increase Lipitor to 80 mg. At discharge patient will continue with Lipitor 80 mg daily. Recommend to recheck fasting lipid panel in 4 to 6 weeks to monitor his progress. Patient with diabetic neuropathy. At discharge patient will continue with gabapentin 300 mg daily. Patient with history of atrial fibrillation and aortic valve replacement on chronic anticoagulation therapy. At discharge patient will continue with his current Coumadin regimen. Patient takes Coumadin of 2.5 mg 2 pills every Sunday, Sunday and Sunday. Patient also takes 4 pills every Sunday, , Sunday and Sunday. Maintain INR between 2.5 and 3.5. Recommend to recheck INR in 1 week to monitor his progress. 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 Patient also takes amiodarone 2 mg 1 pill twice daily. Patient will continue with his current medications and follow-up appropriately. Patient with PVD with prior stents. At discharge patient will continue with aspirin 81 mg daily and Plavix 75 mg daily. Patient with COPD and tobacco abuse. At discharge patient will continue with his current medications of Symbicort 2 puffs twice daily and albuterol 2 puffs three times a day as needed for shortness of breath. Tobacco cessation addressed in detail. Patient plans to quit. Patient with GERD. At discharge patient will continue with Prilosec 20 mg daily. Diet: ADA Activity: Ad shree Followup: Unknown,U [Primary Care Provider] - Time spent managing pt's care (in minutes): 55
[2021-02-04] MEDS: DULERA 100/5 (MOMETASONE/FORMOTEROL) INHALER IH SCH (08:25)
[2021-02-04] MEDS: AMIODARONE HCL 200 MG TAB PO SCH (08:26)
[2021-02-04] MEDS: INSULIN GLARGINE 100 UNITS/ML SQ SCH (08:27)
[2021-02-04 08:56] VITALS: O2SAT 96
[2021-02-04] MEDS ORDERED: lisinopriL 20 MG TAB PO SCH (09:00)
[2021-02-04] MEDS ORDERED: CLOPIDOGREL 75 MG TABLET PO SCH (09:00)
[2021-02-04] MEDS ORDERED: DILTIAZEM HCL 180 MG SR CAP PO SCH (09:00)
[2021-02-04] MEDS ORDERED: WARFARIN SODIUM 5 MG TAB PO SCH (17:00)
== END 2021-02-04 08:50 | disposition home or self-care (01) | DRG 303 ==
LOC: ER 13:00 → ERHOLD 16:24 → 4TH 19:56 → OBSVTOIN 02-04 07:57
PROVIDERS: ADMIT Family Medicine; ATTEND Family Medicine
DX: I25.110 Atherosclerotic heart disease of native coronary artery with unstable angina pectoris (principal); F17.210 Nicotine dependence, cigarettes, uncomplicated; I48.91 Unspecified atrial fibrillation; E78.5 Hyperlipidemia, unspecified; E11.22 Type 2 diabetes mellitus with diabetic chronic kidney disease; I12.9 Hypertensive chronic kidney disease with stage 1 through stage 4 chronic kidney disease, or unspecified chronic kidney disease; N18.9 Chronic kidney disease, unspecified; E11.51 Type 2 diabetes mellitus with diabetic peripheral angiopathy without gangrene; J44.9 Chronic obstructive pulmonary disease, unspecified; E11.40 Type 2 diabetes mellitus with diabetic neuropathy, unspecified; K21.9 Gastro-esophageal reflux disease without esophagitis; E86.0 Dehydration; Z88.8 Allergy status to other drugs, medicaments and biological substances; Z79.899 Other long term (current) drug therapy; Z79.4 Long term (current) use of insulin; Z95.5 Presence of coronary angioplasty implant and graft; Z95.2 Presence of prosthetic heart valve; Z95.1 Presence of aortocoronary bypass graft; Z79.01 Long term (current) use of anticoagulants; Z79.02 Long term (current) use of antithrombotics/antiplatelets; Z20.822 Contact with and (suspected) exposure to COVID-19
CPT/HCPCS: 36415; 71045; 80048; 80061; 80076; 82550; 82553; 82947; 83735; 83880; 84484; 85025; 85610; 93005; 96374; 96375; 99285; G0378; J1815; J2270; J2405; J3010; J7606; U0003